=== PATIENT | female | born 1945 | race Caucasian/White ===

== ENCOUNTER 2019-05-13 18:02 | Inpatient (IN) | payer MEDICARE, MEDICAID ==
[~2019-05-13] VITALS: Ht 149.9 cm; Wt 63.6 kg
[~2019-05-13 18:02] MED LIST: TRAM50TA94 PO
[2019-05-14 00:03] LABS: BASOPHILS % 1.1 % (0.0-2.0); EOSINOPHILS % 2.8 % (0.0-5.0); HEMATOCRIT. 40.2 % (36.0-48.0); HEMOGLOBIN. 13.7 g/dL (12.0-16.0); LYMPHOCYTES % 27.5 % (20.0-50.0); MEAN CORPUSCULAR HEMOGLOBIN 31.3 pg (28.0-32.0); MEAN PLATELET VOLUME 9.5 fl (7.4-10.4); MONOCYTES % 13.6 % (2.0-8.0); PLATELET 62 x1000/uL (130-400); RED BLOOD CELL COUNT 4.37 mill/uL (4.2-5.4)
[2019-05-14 00:04] LABS: CHLORIDE 110 mEq/L (98-107)
[2019-05-14] MEDS ORDERED: ASPIRIN 325MG TABLET PO ONE (00:30)
[2019-05-14] MEDS ORDERED: INSULIN LISPRO 100 UNITS/ML SUBCUT NR (03:03)
[2019-05-14 04:58] VITALS: BP 122/55
[2019-05-14 05:00] VITALS: BP 122/55
[2019-05-14] MEDS ORDERED: ONDANSETRON HCL 4MG/2ML INJ IV PRN (06:30)
[2019-05-14] MEDS ORDERED: HYDROCODONE/ACETAMINOPHEN 5/325MG TABLET PO PRN (06:30)
[2019-05-14] MEDS ORDERED: NON FORMULARY PATIENT HOME MED PO SCH (06:30)
[2019-05-14] MEDS ORDERED: CLONIDINE 0.1MG TABLET PO PRN (06:30)
[2019-05-14] MEDS ORDERED: IOHEXOL-350 100 ML BOTTLE ONE (06:58)
[2019-05-14] MEDS ORDERED: GUAIFENESIN/CODEINE 200-20MG/10ML UDC PO PRN (07:00)
[2019-05-14 08:00] VITALS: BP 160/60
[2019-05-14] MEDS ORDERED: DEXTROSE 50% WATER 50ML SYRINGE IV PRN (08:45)
[2019-05-14] MEDS ORDERED: POTASSIUM CHLORIDE 20MEQ TABLET SR PO NR (08:45)
[2019-05-14 10:10] LABS: BG BASE EXCESS 2.8 mmol/L (-2.0-2.0); BG CARBOXYHEMOGLOBIN 0.7 % (0.5-1.5); BG DEOXYHEMOGLOBIN 8.3 % (0.0-5.0); BG FRACTION INSPIRED OXYGEN 21; BG HCO3 ACT 26.3 mmol/L (22.0-26.0); BG METHEMOGLOBIN 0.2 % (0.0-1.5); BG OXYGEN SATURATION 91.6 % (92.0-98.5); BG OXYHEMOGLOBIN 90.8 % (94.0-97.0); BG PCO2 36.6 mmHg (35.0-45.0); BG PH 7.474 (7.350-7.450); BG PO2 58.7 mmHg (75.0-100.0); BG SAMPLE SITE RIGHT RADIAL; BG TOTAL HEMOGLOBIN 13.7 g/dL (12.0-18.0); BG VENT MODE ROOM AIR
[2019-05-14 11:48] LABS: BASOPHILS % 1.2 % (0.0-2.0); EOSINOPHILS % 3.8 % (0.0-5.0); HEMATOCRIT. 38.5 % (36.0-48.0); HEMOGLOBIN. 13.2 g/dL (12.0-16.0); LYMPHOCYTES % 31.8 % (20.0-50.0); MEAN CORPUSCULAR HEMOGLOBIN 31.5 pg (28.0-32.0); MEAN PLATELET VOLUME 10.2 fl (7.4-10.4); MONOCYTES % 12.5 % (2.0-8.0); NEUTROPHILS % 50.7 % (40.0-76.0); PLATELET 66 x1000/uL (130-400); RED BLOOD CELL COUNT 4.18 mill/uL (4.2-5.4); RED CELL DISTRIBUTION WIDTH 14.2 % (11.6-14.6)
[2019-05-14 11:51] LABS: INR 1.2; PROTHROMBIN TIME 12.7 sec (9.6-11.0)
[2019-05-14 12:06] VITALS: BP 160/60
[2019-05-14 12:06] LABS: CHLORIDE 110 mEq/L (98-107)
[2019-05-14] MEDS: BLOOD SUGAR DIAGNOSTIC STRIP TEST SCH ×3 (12:06→20:49)
[2019-05-14] MEDS: INSULIN LISPRO 100 UNITS/ML SUBCUT SCH ×3 (12:12→20:51)
[2019-05-14 12:16] LABS: LDL CHOLESTEROL 50 mg/dL (5-100)
[2019-05-14 12:18] LABS: CREATINE KINASE 88 IU/L (26-192); CREATINE KINASE MB FRACTION 1.2 ng/mL (0.5-3.6); HDL CHOLESTEROL 48 mg/dL (40-59)
[2019-05-14] MEDS ORDERED: ASPI-986 PO (12:35)
[2019-05-14] MEDS ORDERED: BENTL PO (12:35)
[2019-05-14] MEDS ORDERED: NORT50CA PO (12:35)
[2019-05-14] MEDS ORDERED: ESCI20TA43 PO (12:35)
[2019-05-14] MEDS ORDERED: TOPUD PO (12:35)
[2019-05-14] MEDS ORDERED: PRAV10TA35 PO (12:35)
[2019-05-14] MEDS ORDERED: BISACODYL 10MG SUPP PR PRN (13:30)
[2019-05-14] MEDS ORDERED: IPRATROPIUM/ALBUTEROL 0.5-3(2.5)MG/3ML NEB HHN PRN (13:30)
[2019-05-14] MEDS ORDERED: LORAZEPAM 2MG/ML CPJ IV PRN (13:30)
[2019-05-14] MEDS ORDERED: DIPHENHYDRAMINE 50MG/ML VIAL IV PRN (13:30)
[2019-05-14 13:37] LABS: BASOPHILS % 1.2 % (0.0-2.0); EOSINOPHILS % 3.2 % (0.0-5.0); HEMATOCRIT. 38.8 % (36.0-48.0); HEMOGLOBIN. 13.3 g/dL (12.0-16.0); LYMPHOCYTES % 31.7 % (20.0-50.0); MEAN CORPUSCULAR HEMOGLOBIN 31.4 pg (28.0-32.0); MEAN CORPUSCULAR VOLUME 91.8 fL (81.0-99.0); MEAN PLATELET VOLUME 10.2 fl (7.4-10.4); MONOCYTES % 13.4 % (2.0-8.0); NEUTROPHILS % 50.5 % (40.0-76.0); PLATELET 69 x1000/uL (130-400); RED BLOOD CELL COUNT 4.22 mill/uL (4.2-5.4)
[2019-05-14 14:01] LABS: CHLORIDE 111 mEq/L (98-107)
[2019-05-14 14:11] LABS: T4 FREE 1.07 ng/dL (0.76-1.46)
[2019-05-14] MEDS ORDERED: LEVOFLOXACIN 500MG PREMIX 100 ML IV NR (14:30)
[2019-05-14] MEDS: AMLODIPINE 5MG TABLET PO SCH (14:31)
[2019-05-14] MEDS: SODIUM CHLORIDE 0.45% 1,000 ML IV SCH (14:31)
[2019-05-14 15:14] LABS: VITAMIN B12 SERUM 1222 pg/mL (211-911)
[2019-05-14 16:00] VITALS: BP 104/50
[2019-05-14 16:02] LABS: CLARITY URINE CLOUDY (CLEAR); COLOR URINE DARK YELLOW (YELLOW); KETONES URINE TRACE (NEGATIVE); LEUKOCYTE ESTERASE URINE 1+ (NEGATIVE); NITRITE URINE POSITIVE (NEGATIVE); OCCULT BLOOD URINE NEGATIVE (NEGATIVE); PH URINE 6.5 (4.5-8.0); PROTEIN URINE TRACE (NEGATIVE); SPECIFIC GRAVITY URINE 1.052 (1.005-1.030)
[2019-05-14 16:21] LABS: *AMPHETAMINES SCREEN URINE NEGATIVE (NEGATIVE); *BARBITURATES SCREEN URINE NEGATIVE (NEGATIVE); *BENZODIAZEPINES SCREEN URINE NEGATIVE (NEGATIVE); *COCAINE SCREEN URINE NEGATIVE (NEGATIVE); METHADONE URINE SCREEN NEGATIVE (NEGATIVE)
[2019-05-14 16:22] LABS: CANNABINOID URINE SCREEN NEGATIVE (NEGATIVE); OPIATES URINE SCREEN PRESUMTIVE POSITIVE (NEGATIVE); PHENCYCLIDINE URINE SCREEN NEGATIVE (NEGATIVE)
[2019-05-14 20:00] VITALS: BP 113/50
[2019-05-14] MEDS ORDERED: FAMOTIDINE 20MG TABLET PO SCH (21:00)
[2019-05-14] MEDS: IPRATROPIUM/ALBUTEROL 0.5-3(2.5)MG/3ML NEB HHN SCH (21:40)
[2019-05-15] VITALS: BP 102/50
[2019-05-15] MEDS: IPRATROPIUM/ALBUTEROL 0.5-3(2.5)MG/3ML NEB HHN SCH ×3 (01:34→14:18)
[2019-05-15 04:00] VITALS: BP 106/52
[2019-05-15] MEDS: BLOOD SUGAR DIAGNOSTIC STRIP TEST SCH ×3 (05:39→18:15)
[2019-05-15 08:00] VITALS: BP 100/48
[2019-05-15 08:19] LABS: HEPATITIS B SURFACE ANTIGEN NEGATIVE
[2019-05-15 08:49] LABS: HEPATITIS A AB IGM NEGATIVE (NEGATIVE)
[2019-05-15] MEDS: AMLODIPINE 5MG TABLET PO SCH (09:00)
[2019-05-15] MEDS: INSULIN LISPRO 100 UNITS/ML SUBCUT SCH ×3 (09:19→18:18)
[2019-05-15] MEDS: SODIUM CHLORIDE 0.45% 1,000 ML IV SCH (09:22)
[2019-05-15 12:49] VITALS: BP 94/42
[2019-05-15] MEDS ORDERED: LEVOFLOXACIN 250MG PREMIX 50 ML IV SCH (14:30)
[2019-05-15 16:00] VITALS: BP 106/52
[2019-05-15] MEDS ORDERED: ALBU90AE INH (16:19)
[2019-05-15] MEDS ORDERED: FAMO-135 PO (16:19)
[2019-05-15] MEDS ORDERED: LEVO500T2 PO (16:19)
[2019-05-15 18:38] VITALS: BP 106/52
== END 2019-05-15 19:45 | disposition home or self-care (01) | DRG 202 ==
LOC: ER 18:02 → 6WST 05-14 02:12 → EDBEDREQ 05-14 02:23 → EDBEDREQTM 05-14 02:23 → ENRESERV 05-14 04:30
PROVIDERS: ADMIT Internal Medicine; ATTEND Internal Medicine
DX: J20.9 Acute bronchitis, unspecified (principal); R04.2 Hemoptysis; R07.81 Pleurodynia; D72.819 Decreased white blood cell count, unspecified; E11.65 Type 2 diabetes mellitus with hyperglycemia; E78.5 Hyperlipidemia, unspecified; E86.0 Dehydration; I10 Essential (primary) hypertension; K29.70 Gastritis, unspecified, without bleeding; K52.9 Noninfective gastroenteritis and colitis, unspecified; K74.60 Unspecified cirrhosis of liver; R74.8 Abnormal levels of other serum enzymes; K80.20 Calculus of gallbladder without cholecystitis without obstruction; Z86.73 Personal history of transient ischemic attack (TIA), and cerebral infarction without residual deficits
CPT/HCPCS: 36415; 36600; 71045; 71275; 74176; 80048; 80053; 80061; 80305; 81003; 82375; 82550; 82553; 82607; 82805; 82962; 83036; 83880; 84439; 84443; 84484; 85025; 86705; 86709; 86803; 87070; 87340; 87804; 93005; 93306; 94640; 96372; 97162; 99285; J1815; J1956; J2405; J7620; Q9967

== ENCOUNTER 2019-10-25 13:40 | Emergency (ER) | payer MEDICARE, MEDICAID ==
[~2019-10-25] VITALS: Ht 152.4 cm; Wt 59.0 kg
[~2019-10-25 13:40] MED LIST changes: +ALBU90AE INH; +BENTL PO; +ESCI20TA43 PO; +FAMO-135 PO; +LEVO500T2 PO; +NORT50CA PO; +PRAV10TA35 PO; +TOPUD PO
[2019-10-25] MEDS ORDERED: LIDOCAINE HCL 1% 20ML VIAL (Pyxis) INJ INFIL ONE (15:15)
[2019-10-25 17:15] VITALS: BP 122/61
== END 2019-10-25 17:38 | disposition home or self-care (01) ==
LOC: ER 13:40
DX: L03.011 Cellulitis of right finger (principal); E11.9 Type 2 diabetes mellitus without complications; E78.00 Pure hypercholesterolemia, unspecified; I10 Essential (primary) hypertension; Z98.890 Other specified postprocedural states; Z90.49 Acquired absence of other specified parts of digestive tract; Z79.899 Other long term (current) drug therapy; Z88.0 Allergy status to penicillin
CPT/HCPCS: 73030; 99283; J3490

== ENCOUNTER 2019-10-28 17:01 | Emergency (ER) | payer MEDICARE, MEDICAID ==
[~2019-10-28] VITALS: Ht 152.4 cm; Wt 65.0 kg
[2019-10-28 17:06] VITALS: BP 152/68
== END 2019-10-28 19:21 | disposition home or self-care (01) ==
LOC: ER 17:01
DX: Z48.00 Encounter for change or removal of nonsurgical wound dressing (principal)
CPT/HCPCS: 99282

== ENCOUNTER 2019-11-12 14:32 | Emergency (ER) | payer MEDICARE, MEDICAID ==
[~2019-11-12] VITALS: Ht 152.4 cm; Wt 61.0 kg
[2019-11-12 14:45] VITALS: BP 126/53
== END 2019-11-12 15:47 | disposition home or self-care (01) ==
LOC: ER 14:32
DX: L03.011 Cellulitis of right finger (principal); I11.9 Hypertensive heart disease without heart failure; E78.00 Pure hypercholesterolemia, unspecified; E11.9 Type 2 diabetes mellitus without complications
CPT/HCPCS: 99283

== ENCOUNTER 2020-06-09 12:39 | Emergency (ER) | payer MEDICARE, MEDICAID ==
[~2020-06-09] VITALS: Ht 152.4 cm; Wt 59.0 kg
[~2020-06-09 12:39] MED LIST changes: -ESCI20TA43 PO; +ESCI20TA47 PO
[2020-06-09] MEDS ORDERED: TRAMADOL 50MG TABLET PO ONE (14:00)
[2020-06-09 14:02] LABS: BASOPHILS % 1.5 % (0.0-2.0); EOSINOPHILS % 2.5 % (0.0-5.0); HEMATOCRIT. 33.5 % (36.0-48.0); HEMOGLOBIN. 11.1 g/dL (12.0-16.0); LYMPHOCYTES % 19.8 % (20.0-50.0); MEAN CORPUSCULAR HEMOGLOBIN 29.4 pg (28.0-32.0); MEAN PLATELET VOLUME 8.8 fl (7.4-10.4); MONOCYTES % 10.6 % (2.0-8.0); NEUTROPHILS % 65.6 % (40.0-76.0); PLATELET 100 x1000/uL (130-400); RED BLOOD CELL COUNT 3.77 mill/uL (4.2-5.4); RED CELL DISTRIBUTION WIDTH 15.8 % (11.6-14.6)
[2020-06-09 14:08] LABS: CHLORIDE 106 mEq/L (98-107)
[2020-06-09 14:10] LABS: INR 1.3; PROTHROMBIN TIME 13.3 sec (9.6-11.0)
[2020-06-09] MEDS ORDERED: MAGNESIUM/ALUMINUM HYDROXIDE/SIMETHICONE 30ML UDC PO PRN (18:00)
[2020-06-09] MEDS ORDERED: IPRATROPIUM/ALBUTEROL 0.5-3(2.5)MG/3ML NEB NEB PRN (18:00)
[2020-06-09] MEDS ORDERED: LEVOFLOXACIN 500MG PREMIX 100 ML IV SCH ×2 (18:00→20:00)
[2020-06-09] MEDS ORDERED: GUAIFENESIN 200MG/10ML SUGAR FREE UDC PO PRN (18:00)
[2020-06-09] MEDS ORDERED: DEXTROSE 50% WATER 50ML SYRINGE IV PRN (18:00)
[2020-06-09] MEDS ORDERED: ACETAMINOPHEN 650MG/20.3ML UDC GT PRN (18:00)
[2020-06-09] MEDS ORDERED: CLONIDINE 0.1MG TABLET PO PRN (18:00)
[2020-06-09] MEDS ORDERED: NA PHOS,M-B/NA PHOS,DI-BA ENEMA 118ML PR PRN (18:00)
[2020-06-09] MEDS ORDERED: DIPHENHYDRAMINE 50MG/ML VIAL IV PRN (18:00)
[2020-06-09] MEDS ORDERED: ACETAMINOPHEN 650MG SUPP PR PRN (18:00)
[2020-06-09] MEDS ORDERED: ONDANSETRON HCL 4MG/2ML INJ IV PRN (18:00)
[2020-06-09] MEDS ORDERED: DOCUSATE SODIUM 100MG CAPSULE PO PRN (18:00)
[2020-06-09] MEDS ORDERED: INSULIN LISPRO 100 UNITS/ML SUBCUT SCH (18:20)
[2020-06-09] MEDS ORDERED: POTASSIUM CHLORIDE INJ 40 MEQ in DEXT 5% WATER 250 ML IV SCH (19:00)
[2020-06-09 19:30] VITALS: BP 117/61
[2020-06-09] MEDS ORDERED: BLOOD SUGAR DIAGNOSTIC STRIP TEST SCH (21:00)
[2020-06-09] MEDS ORDERED: FAMOTIDINE 20MG TABLET PO SCH (21:00)
[2020-06-09] MEDS ORDERED: LACTULOSE 20G/30ML UDC PO SCH (22:00)
[2020-06-10] MEDS ORDERED: SPIR25TA6 MT (15:39)
[2020-06-10] MEDS ORDERED: FURO-152 MT (15:39)
[2020-06-10] MEDS ORDERED: LEVOFLOXACIN 250MG PREMIX 50 ML IV SCH (20:00)
== END 2020-06-09 19:40 | disposition left against medical advice (07) ==
LOC: ER 12:39 → EDBEDREQ 15:46 → EDBEDREQTM 15:46 → CANRESERV 19:35 → ENRESERV 19:35 → ER 19:40 → CANBEDREQ 20:22
DX: R07.89 Other chest pain (principal); R18.8 Other ascites; R26.9 Unspecified abnormalities of gait and mobility; R10.12 Left upper quadrant pain; D61.818 Other pancytopenia; E11.9 Type 2 diabetes mellitus without complications; E78.00 Pure hypercholesterolemia, unspecified; K74.60 Unspecified cirrhosis of liver; I11.9 Hypertensive heart disease without heart failure; E72.20 Disorder of urea cycle metabolism, unspecified; Z91.81 History of falling; Z90.49 Acquired absence of other specified parts of digestive tract; Z88.0 Allergy status to penicillin
CPT/HCPCS: 36415; 71045; 71250; 74176; 80053; 82140; 83880; 84484; 85025; 86850; 86900; 93005; 99285; J3480; J7060

== ENCOUNTER 2020-06-10 08:52 | Emergency (ER) | payer MEDICARE, MEDICAID ==
[~2020-06-10] VITALS: Ht 152.4 cm; Wt 69.0 kg
[~2020-06-10 08:52] MED LIST changes: +ESCI20TA37 PO; -ESCI20TA47 PO
[2020-06-10 09:49] LABS: BASOPHILS % 1.3 % (0.0-2.0); HEMATOCRIT. 38.1 % (36.0-48.0); HEMOGLOBIN. 12.6 g/dL (12.0-16.0); LYMPHOCYTES % 16.9 % (20.0-50.0); MEAN CORPUSCULAR HEMOGLOBIN 29.3 pg (28.0-32.0); MEAN CORPUSCULAR VOLUME 88.8 fL (81.0-99.0); MEAN PLATELET VOLUME 8.6 fl (7.4-10.4); MONOCYTES % 7.2 % (2.0-8.0); NEUTROPHILS % 71.6 % (40.0-76.0); PLATELET 126 x1000/uL (130-400); RED BLOOD CELL COUNT 4.29 mill/uL (4.2-5.4); RED CELL DISTRIBUTION WIDTH 15.8 % (11.6-14.6)
[2020-06-10 09:55] LABS: CHLORIDE 106 mEq/L (98-107)
[2020-06-10 10:00] LABS: INR 1.2; PROTHROMBIN TIME 12.4 sec (9.6-11.0)
[2020-06-10] MEDS ORDERED: DEXTROSE 50% WATER 50ML SYRINGE IV PRN (10:15)
[2020-06-10] MEDS ORDERED: BLOOD SUGAR DIAGNOSTIC STRIP TEST SCH (13:00)
[2020-06-10] MEDS ORDERED: LIDOCAINE HCL 1% 20ML VIAL (Pyxis) INJ ONE (13:07)
[2020-06-10] MEDS ORDERED: SODIUM BICARBONATE 4% (2.4MEQ) 5ML VIAL IV ONE (13:07)
[2020-06-10] MEDS ORDERED: INSULIN LISPRO 100 UNITS/ML SUBCUT SCH (13:20)
[2020-06-10] MEDS ORDERED: FUROSEMIDE 40MG TABLET PO NR (14:15)
[2020-06-10] MEDS ORDERED: SPIRONOLACTONE 25MG TABLET PO SCH (14:15)
[2020-06-10] MEDS ORDERED: POTASSIUM CHLORIDE 20MEQ TABLET SR PO NR (14:15)
[2020-06-10] MEDS ORDERED: FURO-152 MT (15:39)
[2020-06-10] MEDS ORDERED: SPIR25TA6 MT (15:39)
[2020-06-10 16:20] VITALS: BP 115/54
== END 2020-06-10 16:48 | disposition home or self-care (01) ==
LOC: ER 08:52 → EDBEDREQ 10:53 → EDBEDREQSVC 10:53 → ER 16:48 → CANBEDREQ 06-11 07:00
DX: R18.8 Other ascites (principal); E87.2 Acidosis; K80.80 Other cholelithiasis without obstruction; E11.9 Type 2 diabetes mellitus without complications; E78.00 Pure hypercholesterolemia, unspecified; I10 Essential (primary) hypertension; Z90.49 Acquired absence of other specified parts of digestive tract; Z79.899 Other long term (current) drug therapy; Z88.0 Allergy status to penicillin; Z20.822 Contact with and (suspected) exposure to COVID-19
CPT/HCPCS: 36415; 49083; 71045; 74176; 76705; 80053; 82040; 82945; 82962; 83605; 83615; 83690; 84145; 84157; 84478; 84484; 85025; 85610; 87040; 87070; 87205; 87426; 88108; 88312; 89050; 93005; 96372; 99285; J1815; J3490

== ENCOUNTER 2020-10-10 20:32 | Inpatient (IN) | payer MEDICARE, MEDICAID ==
[~2020-10-10] VITALS: Ht 154.9 cm; Wt 69.9 kg
[~2020-10-10 20:32] MED LIST changes: +FURO-152 MT; -LEVO500T2 PO; -PRAV10TA35 PO; +SPIR25TA6 MT; -TOPUD PO
[2020-10-10] MEDS ORDERED: MORPHINE SULFATE 4 MG/ML CPJ (NOT FOR IM USE) IV STA (22:52)
[2020-10-10] MEDS ORDERED: ONDANSETRON HCL 4MG/2ML INJ IV STA (22:52)
[2020-10-10] MEDS ORDERED: SODIUM CHLORIDE 0.9% 1,000 ML IV ONE (23:00)
[2020-10-10 23:36] LABS: HEMATOCRIT. 23.5 % (36.0-48.0); MEAN CORPUSCULAR HEMOGLOBIN 23.5 pg (28.0-32.0); MEAN CORPUSCULAR VOLUME 78.8 fL (81.0-99.0); MEAN PLATELET VOLUME 8.4 fl (7.4-10.4); PLATELET 127 x1000/uL (130-400); RED BLOOD CELL COUNT 2.98 mill/uL (4.2-5.4); RED CELL DISTRIBUTION WIDTH 17.8 % (11.6-14.6)
[2020-10-10 23:44] LABS: CHLORIDE 112 mEq/L (98-107)
[2020-10-10 23:45] LABS: INR 1.3; PROTHROMBIN TIME 13.7 sec (9.6-11.0)
[2020-10-10 23:58] LABS: CLARITY URINE CLEAR (CLEAR); COLOR URINE YELLOW (YELLOW); KETONES URINE NEGATIVE (NEGATIVE); LEUKOCYTE ESTERASE URINE TRACE (NEGATIVE); NITRITE URINE NEGATIVE (NEGATIVE); OCCULT BLOOD URINE NEGATIVE (NEGATIVE); PH URINE 6.5 (4.5-8.0); PROTEIN URINE NEGATIVE (NEGATIVE)
[2020-10-11] MEDS ORDERED: OCTREOTIDE ACETATE 50 MCG/ML 1ML IV STA (01:13)
[2020-10-11] MEDS ORDERED: PANTOPRAZOLE SODIUM 40 MG/VIAL IV STA (01:13)
[2020-10-11] MEDS ORDERED: IOHEXOL-300 100 ML BOTTLE ONE (03:48)
[2020-10-11 04:58] LABS: PLATELET ESTIMATE DECREASED
[2020-10-11] MEDS ORDERED: MORPHINE SULFATE 2 MG/ML CPJ (NOT FOR IM USE) IV SCH (06:00)
[2020-10-11 08:00] VITALS: BP 108/51
[2020-10-11 10:32] VITALS: BP_SYST 110; BP_SYST 117; BP_DIAS 57; BP_DIAS 65
[2020-10-11] MEDS ORDERED: CLONIDINE 0.1MG TABLET PO PRN (11:45)
[2020-10-11] MEDS ORDERED: DIPHENHYDRAMINE 50MG/ML VIAL IV PRN (11:45)
[2020-10-11] MEDS ORDERED: DOCUSATE SODIUM 100MG CAPSULE PO PRN (11:45)
[2020-10-11] MEDS: PANTOPRAZOLE SODIUM 40 MG/VIAL IV SCH ×2 (11:45→17:43)
[2020-10-11] MEDS ORDERED: GUAIFENESIN 200MG/10ML SUGAR FREE UDC PO PRN (11:45)
[2020-10-11] MEDS ORDERED: MAGNESIUM/ALUMINUM HYDROXIDE/SIMETHICONE 30ML UDC PO PRN (11:45)
[2020-10-11] MEDS ORDERED: ONDANSETRON HCL 4MG/2ML INJ IV PRN (11:45)
[2020-10-11] MEDS ORDERED: IPRATROPIUM/ALBUTEROL 0.5-3(2.5)MG/3ML NEB NEB PRN (11:45)
[2020-10-11] MEDS ORDERED: ACETAMINOPHEN 325MG TABLET PO PRN (11:45)
[2020-10-11] MEDS ORDERED: LORAZEPAM 0.5MG TABLET PO PRN (11:45)
[2020-10-11] MEDS ORDERED: NA PHOS,M-B/NA PHOS,DI-BA ENEMA 118ML PR PRN (11:45)
[2020-10-11] MEDS ORDERED: ACETAMINOPHEN 650MG SUPP PR PRN (11:45)
[2020-10-11] MEDS ORDERED: HYDROCODONE/ACETAMINOPHEN 5/325MG TABLET PO PRN (11:45)
[2020-10-11] MEDS ORDERED: MORPHINE SULFATE 2 MG/ML CPJ (NOT FOR IM USE) IV PRN (11:45)
[2020-10-11 12:00] VITALS: BP 117/66
[2020-10-11] MEDS ORDERED: LACTULOSE 20G/30ML UDC PO NR (13:45)
[2020-10-11] MEDS ORDERED: DEXTROSE 50% WATER 50ML SYRINGE IV PRN (15:45)
[2020-10-11 15:51] LABS: BASOPHILS % 1.6 % (0.0-2.0); EOSINOPHILS % 3.7 % (0.0-5.0); HEMATOCRIT. 26.2 % (36.0-48.0); HEMOGLOBIN. 8.4 g/dL (12.0-16.0); LYMPHOCYTES % 17.4 % (20.0-50.0); MEAN CORPUSCULAR VOLUME 77.8 fL (81.0-99.0); MEAN PLATELET VOLUME 8.1 fl (7.4-10.4); MONOCYTES % 10.7 % (2.0-8.0); NEUTROPHILS % 66.6 % (40.0-76.0); PLATELET 128 x1000/uL (130-400); RED BLOOD CELL COUNT 3.36 mill/uL (4.2-5.4); RED CELL DISTRIBUTION WIDTH 18.1 % (11.6-14.6)
[2020-10-11 16:00] VITALS: BP 106/60
[2020-10-11 16:01] LABS: CHLORIDE 111 mEq/L (98-107)
[2020-10-11 16:15] LABS: TOTAL IRON BINDING CAPACITY 295 ug/dL (250-450)
[2020-10-11 16:22] LABS: FERRITIN 24 ng/mL (10-291)
[2020-10-11 16:33] LABS: HEPATITIS B SURFACE ANTIGEN NEGATIVE
[2020-10-11 16:39] LABS: VITAMIN B12 SERUM >2000 pg/mL pg/mL (211-911)
[2020-10-11 17:02] LABS: HEPATITIS A AB IGM NEGATIVE (NEGATIVE)
[2020-10-11] MEDS: BLOOD SUGAR DIAGNOSTIC STRIP TEST SCH ×2 (17:39→21:00)
[2020-10-11] MEDS: INSULIN LISPRO 100 UNITS/ML SUBCUT SCH ×2 (17:44→21:00)
[2020-10-11 20:00] VITALS: BP 123/66
[2020-10-12] VITALS (7 sets, daily range): BP systolic 100–120; BP diastolic 47–80
[2020-10-12 06:33] LABS: CHLORIDE 112 mEq/L (98-107)
[2020-10-12 06:42] LABS: LDL CHOLESTEROL 42 mg/dL (5-100)
[2020-10-12 06:43] LABS: HEMATOCRIT. 25.2 % (36.0-48.0); HEMOGLOBIN. 8.1 g/dL (12.0-16.0); MEAN CORPUSCULAR HEMOGLOBIN 25.2 pg (28.0-32.0); MEAN CORPUSCULAR VOLUME 78.5 fL (81.0-99.0); MEAN PLATELET VOLUME 8.3 fl (7.4-10.4); PLATELET 123 x1000/uL (130-400); RED BLOOD CELL COUNT 3.21 mill/uL (4.2-5.4); RED CELL DISTRIBUTION WIDTH 18.4 % (11.6-14.6)
[2020-10-12 06:45] LABS: T4 FREE 1.08 ng/dL (0.76-1.46)
[2020-10-12 06:48] LABS: HDL CHOLESTEROL 42 mg/dL (40-59)
[2020-10-12] MEDS: BLOOD SUGAR DIAGNOSTIC STRIP TEST SCH ×2 (07:23→12:10)
[2020-10-12] MEDS: INSULIN LISPRO 100 UNITS/ML SUBCUT SCH ×3 (07:40→18:25)
[2020-10-12] MEDS ORDERED: LIDOCAINE HCL 1% 20ML VIAL (Pyxis) INJ ONE (08:40)
[2020-10-12] MEDS ORDERED: SODIUM BICARBONATE 4% (2.4MEQ) 5ML VIAL IV ONE (08:41)
[2020-10-12] MEDS ORDERED: SIMETHICONE/SOD BICARB/CIT AC 1 EACH GRAN.EF.PK ONE (08:41)
[2020-10-12] MEDS: LACTULOSE 20G/30ML UDC PO SCH ×2 (10:20→18:31)
[2020-10-12] MEDS: PANTOPRAZOLE SODIUM 40 MG/VIAL IV SCH ×2 (10:22→18:30)
[2020-10-12] MEDS ORDERED: PROT40 MT (16:04)
[2020-10-12 16:05] LABS: HEMATOCRIT 26.8 % (36.0-48.0); HEMOGLOBIN 8.4 g/dL (12.0-16.0)
[2020-10-12 16:47] LABS: PLATELET ESTIMATE DECREASED
== END 2020-10-12 21:50 | disposition home or self-care (01) | DRG 432 ==
LOC: ER 20:32 → 8WST 10-11 02:32 → ENRESERV 10-11 07:57
PROVIDERS: ADMIT Internal Medicine; ATTEND Internal Medicine
PROC: 30233N1 Transfusion of Nonautologous Red Blood Cells into Peripheral Vein, Percutaneous Approach (ICD-10-PCS; 2020-10-11)
PROC: 0W9G3ZZ Drainage of Peritoneal Cavity, Percutaneous Approach (ICD-10-PCS; principal; 2020-10-12)
DX: K74.69 Other cirrhosis of liver (principal); I50.33 Acute on chronic diastolic (congestive) heart failure; R18.8 Other ascites; K76.6 Portal hypertension; M48.56XA Collapsed vertebra, not elsewhere classified, lumbar region, initial encounter for fracture; D64.9 Anemia, unspecified; E11.9 Type 2 diabetes mellitus without complications; E78.5 Hyperlipidemia, unspecified; I11.0 Hypertensive heart disease with heart failure; K80.20 Calculus of gallbladder without cholecystitis without obstruction; M85.80 Other specified disorders of bone density and structure, unspecified site; Z79.899 Other long term (current) drug therapy; Z82.49 Family history of ischemic heart disease and other diseases of the circulatory system; Z88.0 Allergy status to penicillin; Z20.822 Contact with and (suspected) exposure to COVID-19
CPT/HCPCS: 36415; 49083; 71045; 74177; 80053; 80061; 81003; 82040; 82140; 82270; 82607; 82728; 82746; 82962; 83036; 83540; 83550; 83605; 83615; 83880; 84439; 84443; 84478; 85014; 85018; 85025; 85044; 86705; 86709; 86803; 86850; 86900; 86920; 87340; 87426; 88108; 88312; 93005; 93306; 93970; 97162; 99291; C9113; J1815; J2270; J2354; J2405; J3490; J7030; J7517; P9016; Q9967

== ENCOUNTER 2020-10-24 18:06 | Inpatient (IN) | payer MEDICARE, MEDICAID ==
[~2020-10-24] VITALS: Ht 152.4 cm; Wt 59.4 kg
[~2020-10-24 18:06] MED LIST changes: +PROT40 MT
[2020-10-24 19:17] LABS: HEMOGLOBIN. 9.4 g/dL (12.0-16.0); MEAN CORPUSCULAR HEMOGLOBIN 25.2 pg (28.0-32.0); MEAN CORPUSCULAR VOLUME 80.3 fL (81.0-99.0); MEAN PLATELET VOLUME 7.8 fl (7.4-10.4); PLATELET 164 x1000/uL (130-400); RED BLOOD CELL COUNT 3.73 mill/uL (4.2-5.4); RED CELL DISTRIBUTION WIDTH 25.2 % (11.6-14.6)
[2020-10-24 19:25] LABS: CHLORIDE 114 mEq/L (98-107)
[2020-10-24 19:27] LABS: INR 1.2; PROTHROMBIN TIME 13.1 sec (9.6-11.0)
[2020-10-24 19:39] LABS: PLATELET ESTIMATE NORMAL
[2020-10-24] MEDS ORDERED: FUROSEMIDE 40MG/4ML VIAL IVP ONE (19:45)
[2020-10-24 20:28] LABS: CLARITY URINE CLEAR (CLEAR); COLOR URINE DARK YELLOW (YELLOW); KETONES URINE TRACE (NEGATIVE); LEUKOCYTE ESTERASE URINE TRACE (NEGATIVE); NITRITE URINE NEGATIVE (NEGATIVE); OCCULT BLOOD URINE NEGATIVE (NEGATIVE); PH URINE 5.5 (4.5-8.0); PROTEIN URINE TRACE (NEGATIVE)
[2020-10-25 09:10] VITALS: BP 105/53
[2020-10-25] MEDS ORDERED: *PATIENT'S OWN MEDICATION STORAGE XX SCH (10:45)
[2020-10-25] MEDS: SPIRONOLACTONE 25MG TABLET PO SCH (11:15)
[2020-10-25] MEDS ORDERED: LORAZEPAM 0.5MG TABLET PO PRN (11:15)
[2020-10-25] MEDS ORDERED: NA PHOS,M-B/NA PHOS,DI-BA ENEMA 118ML PR PRN (11:15)
[2020-10-25] MEDS ORDERED: IPRATROPIUM/ALBUTEROL 0.5-3(2.5)MG/3ML NEB NEB PRN ×2 (11:15)
[2020-10-25] MEDS ORDERED: ACETAMINOPHEN 650MG SUPP PR PRN (11:15)
[2020-10-25] MEDS ORDERED: ONDANSETRON HCL 4MG/2ML INJ IV PRN (11:15)
[2020-10-25] MEDS ORDERED: ACETAMINOPHEN 325MG TABLET PO PRN (11:15)
[2020-10-25] MEDS ORDERED: DIPHENHYDRAMINE 50MG/ML VIAL IV PRN (11:15)
[2020-10-25] MEDS ORDERED: CLONIDINE 0.1MG TABLET PO PRN (11:15)
[2020-10-25] MEDS ORDERED: DOCUSATE SODIUM 100MG CAPSULE PO PRN (11:15)
[2020-10-25] MEDS ORDERED: GUAIFENESIN 200MG/10ML SUGAR FREE UDC PO PRN (11:15)
[2020-10-25] MEDS ORDERED: DEXTROSE 50% WATER 50ML SYRINGE IV PRN (11:15)
[2020-10-25] MEDS ORDERED: MAGNESIUM/ALUMINUM HYDROXIDE/SIMETHICONE 30ML UDC PO PRN (11:15)
[2020-10-25] MEDS ORDERED: HYDROCODONE/ACETAMINOPHEN 5/325MG TABLET PO PRN (11:15)
[2020-10-25 11:20] VITALS: BP 105/53
[2020-10-25 11:44] LABS: BG BASE EXCESS -0.8 mmol/L (-2.0-2.0); BG CARBOXYHEMOGLOBIN 0.5 % (0.5-1.5); BG DEOXYHEMOGLOBIN 4.5 % (0.0-5.0); BG FRACTION INSPIRED OXYGEN 21; BG HCO3 ACT 21.7 mmol/L (22.0-26.0); BG METHEMOGLOBIN 0.3 % (0.0-1.5); BG OXYGEN SATURATION 95.5 % (92.0-98.5); BG OXYHEMOGLOBIN 94.7 % (94.0-97.0); BG PCO2 28.5 mmHg (35.0-45.0); BG PO2 77.6 mmHg (75.0-100.0); BG SAMPLE SITE RIGHT RADIAL; BG TOTAL HEMOGLOBIN 9.4 g/dL (12.0-18.0); BG VENT MODE ROOM AIR
[2020-10-25 12:00] VITALS: BP 113/57
[2020-10-25] MEDS ORDERED: LEVOFLOXACIN 500MG PREMIX 100 ML IV NR ×2 (12:00→15:00)
[2020-10-25] MEDS: INSULIN LISPRO 100 UNITS/ML SUBCUT SCH ×3 (12:23→21:00)
[2020-10-25] MEDS: PANTOPRAZOLE SODIUM 40 MG/VIAL IV SCH (12:23)
[2020-10-25] MEDS: BLOOD SUGAR DIAGNOSTIC STRIP TEST SCH ×3 (12:23→21:00)
[2020-10-25] MEDS: FUROSEMIDE 40MG/4ML VIAL IV SCH (12:23)
[2020-10-25] MEDS ORDERED: METRONIDAZOLE 500 MG PREMIX 100 ML IV SCH (13:00)
[2020-10-25] MEDS ORDERED: LIDOCAINE HCL 1% 20ML VIAL (Pyxis) INJ ONE (13:35)
[2020-10-25] MEDS ORDERED: SODIUM BICARBONATE 4% (2.4MEQ) 5ML VIAL IV ONE (13:35)
[2020-10-25] MEDS ORDERED: PRAV10TA35 PO (13:43)
[2020-10-25] MEDS ORDERED: FERR325T6 PO (13:43)
[2020-10-25] MEDS ORDERED: RAMI2.5C54 PO (13:43)
[2020-10-25] MEDS ORDERED: GLIM2TAB30 PO (13:43)
[2020-10-25] MEDS: METRONIDAZOLE 500 MG PREMIX 100 ML IV SCH ×2 (15:27→21:01)
[2020-10-25 16:00] VITALS: BP 102/55
[2020-10-25 18:17] LABS: BASOPHILS % 0.5 % (0.0-2.0); EOSINOPHILS % 6.8 % (0.0-5.0); HEMATOCRIT. 26.6 % (36.0-48.0); HEMOGLOBIN. 8.7 g/dL (12.0-16.0); LYMPHOCYTES % 18.2 % (20.0-50.0); MEAN CORPUSCULAR HEMOGLOBIN 25.6 pg (28.0-32.0); MEAN CORPUSCULAR VOLUME 78.5 fL (81.0-99.0); MEAN PLATELET VOLUME 7.6 fl (7.4-10.4); MONOCYTES % 14.1 % (2.0-8.0); NEUTROPHILS % 60.4 % (40.0-76.0); PLATELET 133 x1000/uL (130-400); RED BLOOD CELL COUNT 3.39 mill/uL (4.2-5.4); RED CELL DISTRIBUTION WIDTH 25.1 % (11.6-14.6)
[2020-10-25 18:40] LABS: CREATINE KINASE 56 IU/L (26-192)
[2020-10-25 18:41] LABS: CREATINE KINASE MB FRACTION < 1.0 ng/mL (0.5-3.6)
[2020-10-25 19:09] LABS: CHLORIDE 112 mEq/L (98-107)
[2020-10-25 20:00] VITALS: BP 106/52
[2020-10-26] VITALS: BP 112/55
[2020-10-26 00:07] LABS: CREATINE KINASE 50 IU/L (26-192); CREATINE KINASE MB FRACTION < 1.0 ng/mL (0.5-3.6)
[2020-10-26 04:00] VITALS: BP 95/40
[2020-10-26] MEDS: METRONIDAZOLE 500 MG PREMIX 100 ML IV SCH ×2 (06:15→12:59)
[2020-10-26 06:17] LABS: CHLORIDE 112 mEq/L (98-107)
[2020-10-26 06:25] LABS: BASOPHILS % 1.6 % (0.0-2.0); EOSINOPHILS % 7.1 % (0.0-5.0); HEMATOCRIT. 25.4 % (36.0-48.0); HEMOGLOBIN. 8.3 g/dL (12.0-16.0); LYMPHOCYTES % 18.8 % (20.0-50.0); MEAN CORPUSCULAR VOLUME 79.5 fL (81.0-99.0); MEAN PLATELET VOLUME 7.8 fl (7.4-10.4); MONOCYTES % 11.9 % (2.0-8.0); NEUTROPHILS % 60.6 % (40.0-76.0); PLATELET 127 x1000/uL (130-400); RED BLOOD CELL COUNT 3.19 mill/uL (4.2-5.4); RED CELL DISTRIBUTION WIDTH 25.6 % (11.6-14.6)
[2020-10-26 06:26] LABS: LDL CHOLESTEROL 43 mg/dL (5-100)
[2020-10-26 06:28] LABS: HDL CHOLESTEROL 39 mg/dL (40-59)
[2020-10-26 06:29] LABS: T4 FREE 0.98 ng/dL (0.76-1.46)
[2020-10-26] MEDS: BLOOD SUGAR DIAGNOSTIC STRIP TEST SCH ×3 (06:50→17:30)
[2020-10-26] MEDS: INSULIN LISPRO 100 UNITS/ML SUBCUT SCH ×3 (07:05→17:30)
[2020-10-26 08:38] VITALS: BP 98/54
[2020-10-26] MEDS: FUROSEMIDE 40MG/4ML VIAL IV SCH (08:39)
[2020-10-26] MEDS: PANTOPRAZOLE SODIUM 40 MG/VIAL IV SCH (08:42)
[2020-10-26] MEDS: SPIRONOLACTONE 25MG TABLET PO SCH (08:45)
[2020-10-26] MEDS ORDERED: LEVOFLOXACIN 250MG PREMIX 50 ML IV SCH ×2 (09:00→11:00)
[2020-10-26 12:00] VITALS: BP 101/53
[2020-10-26] MEDS ORDERED: PROT40 MT (15:16)
[2020-10-26] MEDS ORDERED: FURO-151 MT (15:16)
[2020-10-26] MEDS ORDERED: SPIR25TA6 MT (15:16)
[2020-10-26 16:00] VITALS: BP 113/64
[2020-10-26 18:03] VITALS: BP 113/64
== END 2020-10-26 20:00 | disposition home or self-care (01) | DRG 432 ==
LOC: ER 18:06 → 8WST 23:51 → EDBEDREQTM 23:57 → EDBEDREQ 23:57 → ENRESERV 10-25 08:09
PROVIDERS: ADMIT Internal Medicine; ATTEND Internal Medicine
PROC: 0W9G3ZZ Drainage of Peritoneal Cavity, Percutaneous Approach (ICD-10-PCS; principal; 2020-10-25)
DX: K74.60 Unspecified cirrhosis of liver (principal); I50.33 Acute on chronic diastolic (congestive) heart failure; K76.6 Portal hypertension; M48.56XA Collapsed vertebra, not elsewhere classified, lumbar region, initial encounter for fracture; R18.8 Other ascites; I11.0 Hypertensive heart disease with heart failure; R26.2 Difficulty in walking, not elsewhere classified; Z20.822 Contact with and (suspected) exposure to COVID-19; E78.5 Hyperlipidemia, unspecified; D64.9 Anemia, unspecified; E11.9 Type 2 diabetes mellitus without complications; M85.80 Other specified disorders of bone density and structure, unspecified site; Z79.84 Long term (current) use of oral hypoglycemic drugs; Z79.899 Other long term (current) drug therapy; Z88.0 Allergy status to penicillin
CPT/HCPCS: 36415; 36600; 49083; 71045; 80053; 80061; 81003; 82105; 82375; 82378; 82550; 82553; 82805; 82962; 83036; 83880; 84439; 84443; 84484; 85025; 86850; 86900; 87426; 88108; 88312; 93005; 93970; 97162; 99285; C9113; J1815; J1940; J1956; J3490; J7040

== ENCOUNTER 2021-04-04 08:36 | Inpatient (IN) | payer MEDICARE, MEDICAID ==
[~2021-04-04] VITALS: Ht 142.2 cm; Wt 56.7 kg
[~2021-04-04 08:36] MED LIST changes: +FERR325T6 PO; +FURO-151 MT; +GLIM2TAB30 PO; +PRAV10TA35 PO; +RAMI2.5C54 PO
[2021-04-04] MEDS ORDERED: IOHEXOL-350 100 ML BOTTLE ONE ×2 (09:21→14:04)
[2021-04-04 09:40] LABS: BASOPHILS % 0.9 % (0.0-2.0); EOSINOPHILS % 2.3 % (0.0-5.0); HEMATOCRIT. 40.4 % (36.0-48.0); HEMOGLOBIN. 13.1 g/dL (12.0-16.0); LYMPHOCYTES % 16.4 % (20.0-50.0); MEAN CORPUSCULAR HEMOGLOBIN 31.7 pg (28.0-32.0); MEAN CORPUSCULAR VOLUME 97.7 fL (81.0-99.0); MEAN PLATELET VOLUME 9.1 fl (7.4-10.4); MONOCYTES % 10.9 % (2.0-8.0); NEUTROPHILS % 69.5 % (40.0-76.0); PLATELET 83 x1000/uL (130-400); RED BLOOD CELL COUNT 4.13 mill/uL (4.2-5.4); RED CELL DISTRIBUTION WIDTH 14.6 % (11.6-14.6)
[2021-04-04 09:44] LABS: CHLORIDE 112 mEq/L (98-107)
[2021-04-04] MEDS ORDERED: ASPIRIN 300MG SUPP PR ONE (09:45)
[2021-04-04 09:48] LABS: ETHANOL BLOOD < 10 mg/dL
[2021-04-04 09:54] LABS: CLARITY URINE CLEAR (CLEAR); COLOR URINE DARK YELLOW (YELLOW); KETONES URINE NEGATIVE (NEGATIVE); LEUKOCYTE ESTERASE URINE NEGATIVE (NEGATIVE); NITRITE URINE NEGATIVE (NEGATIVE); OCCULT BLOOD URINE NEGATIVE (NEGATIVE); PH URINE 7.5 (4.5-8.0); PROTEIN URINE NEGATIVE (NEGATIVE); SPECIFIC GRAVITY URINE 1.017 (1.005-1.030)
[2021-04-04 10:07] LABS: *AMPHETAMINES SCREEN URINE NEGATIVE (NEGATIVE); *BARBITURATES SCREEN URINE NEGATIVE (NEGATIVE); *BENZODIAZEPINES SCREEN URINE NEGATIVE (NEGATIVE); *COCAINE SCREEN URINE NEGATIVE (NEGATIVE); METHADONE URINE SCREEN NEGATIVE (NEGATIVE); OPIATES URINE SCREEN NEGATIVE (NEGATIVE)
[2021-04-04 10:08] LABS: CANNABINOID URINE SCREEN NEGATIVE (NEGATIVE); PHENCYCLIDINE URINE SCREEN NEGATIVE (NEGATIVE)
[2021-04-04] MEDS ORDERED: HYDROCODONE/ACETAMINOPHEN 5/325MG TABLET PO PRN (12:00)
[2021-04-04] MEDS ORDERED: LORAZEPAM 0.5MG TABLET PO PRN (12:00)
[2021-04-04] MEDS ORDERED: ACETAMINOPHEN 650MG/20.3ML UDC GT PRN (12:00)
[2021-04-04] MEDS ORDERED: IPRATROPIUM/ALBUTEROL 0.5-3(2.5)MG/3ML NEB NEB PRN (12:00)
[2021-04-04] MEDS ORDERED: NA PHOS,M-B/NA PHOS,DI-BA ENEMA 118ML PR PRN (12:00)
[2021-04-04] MEDS ORDERED: DEXTROSE 50% WATER 50ML SYRINGE IV PRN (12:00)
[2021-04-04] MEDS ORDERED: ACETAMINOPHEN 650MG SUPP PR PRN (12:00)
[2021-04-04] MEDS ORDERED: DIPHENHYDRAMINE 50MG/ML VIAL IV PRN (12:00)
[2021-04-04] MEDS ORDERED: ONDANSETRON HCL 4MG/2ML INJ IV PRN (12:00)
[2021-04-04] MEDS ORDERED: DOCUSATE SODIUM 100MG CAPSULE PO PRN (12:00)
[2021-04-04] MEDS ORDERED: CLONIDINE 0.1MG TABLET PO PRN (12:00)
[2021-04-04] MEDS ORDERED: GUAIFENESIN 200MG/10ML SUGAR FREE UDC PO PRN (12:00)
[2021-04-04] MEDS ORDERED: MAGNESIUM/ALUMINUM HYDROXIDE/SIMETHICONE 30ML UDC PO PRN (12:00)
[2021-04-04] MEDS ORDERED: CEFTRIAXONE 1 G PREMIX 50 ML IV NR (12:00)
[2021-04-04 12:19] LABS: BG BASE EXCESS -5.3 mmol/L (-2.0-2.0); BG CARBOXYHEMOGLOBIN 0.8 % (0.5-1.5); BG DEOXYHEMOGLOBIN 5.6 % (0.0-5.0); BG HCO3 ACT 17.2 mmol/L (22.0-26.0); BG METHEMOGLOBIN 0.1 % (0.0-1.5); BG OXYGEN SATURATION 94.3 % (92.0-98.5); BG OXYHEMOGLOBIN 93.5 % (94.0-97.0); BG PH 7.438 (7.350-7.450); BG PO2 76.8 mmHg (75.0-100.0); BG SAMPLE SITE RIGHT RADIAL; BG TOTAL HEMOGLOBIN 13.6 g/dL (12.0-18.0); BG VENT MODE ROOM AIR
[2021-04-04] MEDS: BLOOD SUGAR DIAGNOSTIC STRIP TEST SCH ×3 (12:51→22:08)
[2021-04-04] MEDS: INSULIN LISPRO 100 UNITS/ML SUBCUT SCH ×3 (12:58→22:08)
[2021-04-04] MEDS ORDERED: NALOXONE HCL 0.4MG/ML VIAL IV PRN (15:00)
[2021-04-04 20:15] LABS: CREATINE KINASE 195 IU/L (26-192); CREATINE KINASE MB FRACTION 2.3 ng/mL (0.5-3.6)
[2021-04-04] MEDS: DEXT 5%/0.45% NACL 1000ML 1,000 ML IV SCH (20:19)
[2021-04-04 23:39] LABS: CREATINE KINASE MB FRACTION 2.5 ng/mL (0.5-3.6)
[2021-04-05] VITALS: BP 149/64
[2021-04-05 04:00] VITALS: BP 137/59
[2021-04-05] MEDS: BLOOD SUGAR DIAGNOSTIC STRIP TEST SCH ×2 (06:37→12:52)
[2021-04-05] MEDS: DEXT 5%/0.45% NACL 1000ML 1,000 ML IV SCH (06:38)
[2021-04-05 07:46] LABS: HEMATOCRIT. 39.1 % (36.0-48.0); MEAN CORPUSCULAR HEMOGLOBIN 31.7 pg (28.0-32.0); MEAN CORPUSCULAR VOLUME 95.7 fL (81.0-99.0); MEAN PLATELET VOLUME 9.1 fl (7.4-10.4); PLATELET 88 x1000/uL (130-400); RED BLOOD CELL COUNT 4.08 mill/uL (4.2-5.4); RED CELL DISTRIBUTION WIDTH 14.3 % (11.6-14.6)
[2021-04-05 07:50] LABS: CHLORIDE 112 mEq/L (98-107)
[2021-04-05] MEDS: INSULIN LISPRO 100 UNITS/ML SUBCUT SCH ×2 (07:50→12:50)
[2021-04-05 08:00] VITALS: BP 109/39
[2021-04-05] MEDS ORDERED: ASPIRIN 81MG EC TABLET PO SCH (09:00)
[2021-04-05] MEDS ORDERED: CEFTRIAXONE 1,000 MG in DEXTROSE 5% WATER 50 ML IV SCH (09:00)
[2021-04-05 11:31] LABS: PLATELET ESTIMATE DECREASED
[2021-04-05 12:00] VITALS: BP 120/47
[2021-04-05] MEDS ORDERED: LACTULOSE 300 ML in WATER FOR IRRIGATION,STERILE 700 ML IR NR (13:00)
[2021-04-05] MEDS ORDERED: LEVO500T89 PO (13:30)
[2021-04-05] MEDS ORDERED: LACT10SO30 MT (13:32)
[2021-04-05] MEDS ORDERED: LACTULOSE 20G/30ML UDC PO NR (14:00)
[2021-04-05 14:57] VITALS: BP 120/47
== END 2021-04-05 16:21 | disposition home or self-care (01) | DRG 71 ==
LOC: ER 08:36 → EDBEDREQSVC 10:16 → EDBEDREQ 10:16 → EDBEDREQTM 10:16 → EDBEDREQ 11:25 → ENRESERV 19:07 → 6WST 23:59
PROVIDERS: ADMIT Internal Medicine; ATTEND Internal Medicine
DX: G93.41 Metabolic encephalopathy (principal); G45.9 Transient cerebral ischemic attack, unspecified; E72.20 Disorder of urea cycle metabolism, unspecified; K81.0 Acute cholecystitis; E44.1 Mild protein-calorie malnutrition; K74.60 Unspecified cirrhosis of liver; D72.825 Bandemia; E11.65 Type 2 diabetes mellitus with hyperglycemia; E78.5 Hyperlipidemia, unspecified; E86.0 Dehydration; I10 Essential (primary) hypertension; Z20.822 Contact with and (suspected) exposure to COVID-19; Z79.84 Long term (current) use of oral hypoglycemic drugs; Z79.899 Other long term (current) drug therapy; Z82.49 Family history of ischemic heart disease and other diseases of the circulatory system; Z86.73 Personal history of transient ischemic attack (TIA), and cerebral infarction without residual deficits; Z88.0 Allergy status to penicillin; Z68.28 Body mass index [BMI] 28.0-28.9, adult
CPT/HCPCS: 36415; 36600; 70496; 70498; 70551; 71045; 76700; 78227; 80053; 80076; 80305; 80320; 81003; 82140; 82248; 82375; 82550; 82553; 82805; 82962; 83036; 84443; 84484; 85025; 87426; 93005; 93306; 97161; 99291; A9537; J0696; J1815; J7060; Q9967; G0480

== ENCOUNTER 2021-09-02 23:59 | Inpatient (IN) | payer MEDICARE, MEDICAID ==
[~2021-09-02] VITALS: Ht 152.4 cm; Wt 68.5 kg
[~2021-09-02 23:59] MED LIST changes: -FAMO-135 PO; -FURO-152 MT; +LACT10SO30 MT; +LEVO500T89 PO; -NORT50CA PO; -PRAV10TA35 PO
[2021-09-03] MEDS ORDERED: ONDANSETRON HCL 4MG/2ML INJ IV STA (01:11)
[2021-09-03] MEDS ORDERED: KETOROLAC 30MG/ML VIAL IV STA (01:11)
[2021-09-03] MEDS ORDERED: SODIUM CHLORIDE 0.9% 1,000 ML IV ONE (01:15)
[2021-09-03 01:54] LABS: CHLORIDE 102 mEq/L (98-107)
[2021-09-03] MEDS ORDERED: ONDANSETRON HCL 4MG/2ML INJ IV NR (02:30)
[2021-09-03] MEDS ORDERED: KETOROLAC 30MG/ML VIAL IV NR (02:30)
[2021-09-03 02:43] LABS: BASOPHILS % 1.1 % (0.0-2.0); EOSINOPHILS % 3.1 % (0.0-5.0); HEMATOCRIT. 32.2 % (36.0-48.0); HEMOGLOBIN. 10.4 g/dL (12.0-16.0); LYMPHOCYTES % 15.2 % (20.0-50.0); MEAN CORPUSCULAR HEMOGLOBIN 30.3 pg (28.0-32.0); MEAN CORPUSCULAR VOLUME 93.5 fL (81.0-99.0); MEAN PLATELET VOLUME 9.6 fl (7.4-10.4); MONOCYTES % 14.9 % (2.0-8.0); NEUTROPHILS % 65.7 % (40.0-76.0); PLATELET 64 x1000/uL (130-400); RED BLOOD CELL COUNT 3.44 mill/uL (4.2-5.4); RED CELL DISTRIBUTION WIDTH 17.2 % (11.6-14.6)
[2021-09-03] MEDS ORDERED: DEXTROSE 50% WATER 50ML SYRINGE IV PRN (10:45)
[2021-09-03 11:20] VITALS: BP 110/49
[2021-09-03 12:00] VITALS: BP 110/49
[2021-09-03] MEDS: BLOOD SUGAR DIAGNOSTIC STRIP TEST SCH ×3 (12:20→21:20)
[2021-09-03] MEDS ORDERED: DIPHENHYDRAMINE 50MG/ML VIAL IV PRN (12:45)
[2021-09-03] MEDS ORDERED: NA PHOS,M-B/NA PHOS,DI-BA ENEMA 118ML PR PRN (12:45)
[2021-09-03] MEDS ORDERED: HYDROCODONE/ACETAMINOPHEN 5/325MG TABLET PO PRN (12:45)
[2021-09-03] MEDS ORDERED: CLONIDINE 0.1MG TABLET PO PRN (12:45)
[2021-09-03] MEDS ORDERED: MAGNESIUM/ALUMINUM HYDROXIDE/SIMETHICONE 30ML UDC PO PRN (12:45)
[2021-09-03] MEDS ORDERED: IPRATROPIUM/ALBUTEROL 0.5-3(2.5)MG/3ML NEB NEB PRN (12:45)
[2021-09-03] MEDS ORDERED: DOCUSATE SODIUM 100MG CAPSULE PO PRN (12:45)
[2021-09-03] MEDS ORDERED: ACETAMINOPHEN 650MG SUPP PR PRN (12:45)
[2021-09-03] MEDS ORDERED: MORPHINE SULFATE 2 MG/ML CPJ (NOT FOR IM USE) IV PRN (12:45)
[2021-09-03] MEDS ORDERED: ACETAMINOPHEN 325MG TABLET PO PRN (12:45)
[2021-09-03] MEDS ORDERED: GUAIFENESIN 200MG/10ML SUGAR FREE UDC PO PRN (12:45)
[2021-09-03] MEDS ORDERED: ONDANSETRON HCL 4MG/2ML INJ IV PRN (12:45)
[2021-09-03] MEDS ORDERED: LORAZEPAM 0.5MG TABLET PO PRN (12:45)
[2021-09-03] MEDS: INSULIN LISPRO 100 UNITS/ML SUBCUT SCH ×3 (14:22→21:22)
[2021-09-03 16:00] VITALS: BP 106/50
[2021-09-03 16:43] LABS: CREATINE KINASE 80 IU/L (26-192); CREATINE KINASE MB FRACTION 1.2 ng/mL (0.5-3.6)
[2021-09-03 16:57] LABS: INR 1.3; PROTHROMBIN TIME 14.1 sec (9.6-11.0)
[2021-09-03 20:00] VITALS: BP 108/55
[2021-09-03] MEDS: FAMOTIDINE 20MG TABLET PO SCH (21:19)
[2021-09-04] VITALS: BP 96/58
[2021-09-04 01:33] LABS: CREATINE KINASE MB FRACTION 1.4 ng/mL (0.5-3.6)
[2021-09-04 06:57] LABS: BASOPHILS % 1.3 % (0.0-2.0); EOSINOPHILS % 4.4 % (0.0-5.0); HEMATOCRIT. 30.5 % (36.0-48.0); HEMOGLOBIN. 10.2 g/dL (12.0-16.0); LYMPHOCYTES % 22.1 % (20.0-50.0); MEAN CORPUSCULAR HEMOGLOBIN 30.8 pg (28.0-32.0); MEAN PLATELET VOLUME 8.4 fl (7.4-10.4); MONOCYTES % 13.6 % (2.0-8.0); NEUTROPHILS % 58.6 % (40.0-76.0); PLATELET 73 x1000/uL (130-400); RED BLOOD CELL COUNT 3.32 mill/uL (4.2-5.4); RED CELL DISTRIBUTION WIDTH 16.8 % (11.6-14.6)
[2021-09-04] MEDS: BLOOD SUGAR DIAGNOSTIC STRIP TEST SCH ×4 (07:20→21:21)
[2021-09-04 08:00] VITALS: BP 118/52
[2021-09-04 08:13] LABS: CHLORIDE 110 mEq/L (98-107)
[2021-09-04 08:34] LABS: HDL CHOLESTEROL 36 mg/dL (40-59); LDL CHOLESTEROL 57 mg/dL (5-100)
[2021-09-04] MEDS: INSULIN LISPRO 100 UNITS/ML SUBCUT SCH ×4 (09:24→21:24)
[2021-09-04 12:00] VITALS: BP 108/57
[2021-09-04 16:00] VITALS: BP 109/47
[2021-09-04 19:01] LABS: CLARITY URINE CLEAR (CLEAR); COLOR URINE DARK YELLOW (YELLOW); KETONES URINE 1+ (NEGATIVE); LEUKOCYTE ESTERASE URINE TRACE (NEGATIVE); NITRITE URINE NEGATIVE (NEGATIVE); OCCULT BLOOD URINE NEGATIVE (NEGATIVE); PH URINE 5.5 (4.5-8.0); PROTEIN URINE NEGATIVE (NEGATIVE); SPECIFIC GRAVITY URINE 1.035 (1.005-1.030)
[2021-09-04 20:00] VITALS: BP 109/48
[2021-09-04] MEDS ORDERED: NALOXONE HCL 0.4MG/ML VIAL IV PRN (20:45)
[2021-09-04] MEDS: FAMOTIDINE 20MG TABLET PO SCH (21:19)
[2021-09-05] VITALS: BP 105/45
[2021-09-05 04:00] VITALS: BP 113/54
[2021-09-05] MEDS: BLOOD SUGAR DIAGNOSTIC STRIP TEST SCH ×4 (07:20→21:38)
[2021-09-05 08:00] VITALS: BP 113/54
[2021-09-05] MEDS: INSULIN LISPRO 100 UNITS/ML SUBCUT SCH ×4 (09:04→22:01)
[2021-09-05 12:00] VITALS: BP 123/55
[2021-09-05 16:12] VITALS: BP 114/52
[2021-09-05 20:00] VITALS: BP 113/41
[2021-09-05] MEDS ORDERED: LEVOFLOXACIN 750MG PREMIX 150 ML IV SCH (21:00)
[2021-09-05] MEDS: FAMOTIDINE 20MG TABLET PO SCH (21:37)
[2021-09-06] VITALS: BP 101/50
[2021-09-06 04:00] VITALS: BP 128/52
[2021-09-06] MEDS: BLOOD SUGAR DIAGNOSTIC STRIP TEST SCH ×2 (07:45→12:14)
[2021-09-06] MEDS: INSULIN LISPRO 100 UNITS/ML SUBCUT SCH ×2 (08:22→13:00)
[2021-09-06] MEDS ORDERED: LEVO500T89 PO (12:52)
[2021-09-06 13:32] LABS: BASOPHILS % 2.2 % (0.0-2.0); EOSINOPHILS % 4.1 % (0.0-5.0); HEMATOCRIT. 30.9 % (36.0-48.0); LYMPHOCYTES % 21.2 % (20.0-50.0); MEAN CORPUSCULAR HEMOGLOBIN 30.3 pg (28.0-32.0); MEAN CORPUSCULAR VOLUME 93.8 fL (81.0-99.0); MEAN PLATELET VOLUME 8.5 fl (7.4-10.4); MONOCYTES % 14.7 % (2.0-8.0); NEUTROPHILS % 57.8 % (40.0-76.0); PLATELET 85 x1000/uL (130-400); RED BLOOD CELL COUNT 3.29 mill/uL (4.2-5.4); RED CELL DISTRIBUTION WIDTH 17.2 % (11.6-14.6)
[2021-09-06 13:48] LABS: CHLORIDE 105 mEq/L (98-107)
[2021-09-06 16:14] VITALS: BP 129/57
[2021-09-07] MEDS ORDERED: LEVOFLOXACIN 750MG PREMIX 150 ML IV SCH (21:00)
== END 2021-09-06 16:25 | disposition home health service (06) | DRG 74 ==
LOC: ER 23:59 → 6EST 09-03 04:10 → ENRESERV 09-03 10:13
PROVIDERS: ADMIT Internal Medicine; ATTEND Internal Medicine
DX: G90.9 Disorder of the autonomic nervous system, unspecified (principal); M48.56XA Collapsed vertebra, not elsewhere classified, lumbar region, initial encounter for fracture; E87.1 Hypo-osmolality and hyponatremia; D61.818 Other pancytopenia; N39.0 Urinary tract infection, site not specified; E44.1 Mild protein-calorie malnutrition; M54.9 Dorsalgia, unspecified; K74.60 Unspecified cirrhosis of liver; I12.9 Hypertensive chronic kidney disease with stage 1 through stage 4 chronic kidney disease, or unspecified chronic kidney disease; M47.816 Spondylosis without myelopathy or radiculopathy, lumbar region; R26.89 Other abnormalities of gait and mobility; E78.5 Hyperlipidemia, unspecified; M19.90 Unspecified osteoarthritis, unspecified site; E11.22 Type 2 diabetes mellitus with diabetic chronic kidney disease; E11.65 Type 2 diabetes mellitus with hyperglycemia; N18.9 Chronic kidney disease, unspecified; M48.061 Spinal stenosis, lumbar region without neurogenic claudication; W18.39XA Other fall on same level, initial encounter; Y93.89 Activity, other specified; Y92.89 Other specified places as the place of occurrence of the external cause; Y99.8 Other external cause status; Z79.84 Long term (current) use of oral hypoglycemic drugs; Z79.899 Other long term (current) drug therapy; Z86.73 Personal history of transient ischemic attack (TIA), and cerebral infarction without residual deficits; Z91.014 Allergy to mammalian meats; Z79.2 Long term (current) use of antibiotics; Z68.29 Body mass index [BMI] 29.0-29.9, adult
CPT/HCPCS: 36415; 71045; 72128; 72131; 72170; 74176; 80053; 80061; 81003; 82550; 82553; 82962; 84443; 84484; 85025; 93970; 94640; 97162; 99285; J1815; J1885; J1956; J2270; J2405; J7030

== ENCOUNTER 2021-11-24 21:52 | Inpatient (IN) | payer MEDICARE, MEDICAID ==
[~2021-11-24] VITALS: Ht 137.2 cm; Wt 59.4 kg
[~2021-11-24 21:52] MED LIST changes: -LEVO500T89 PO; +LEVO500T90 PO
[2021-11-24] MEDS ORDERED: SODIUM CHLORIDE 0.9% 1,000 ML IV ONE (23:00)
[2021-11-24] MEDS ORDERED: MORPHINE SULFATE 4 MG/ML CPJ (NOT FOR IM USE) IV ONE (23:00)
[2021-11-24 23:24] LABS: BASOPHILS % 2.7 % (0.0-2.0); EOSINOPHILS % 8.4 % (0.0-5.0); HEMATOCRIT. 22.9 % (36.0-48.0); HEMOGLOBIN. 7.1 g/dL (12.0-16.0); LYMPHOCYTES % 25.7 % (20.0-50.0); MEAN CORPUSCULAR HEMOGLOBIN 26.8 pg (28.0-32.0); MEAN CORPUSCULAR VOLUME 86.5 fL (81.0-99.0); MEAN PLATELET VOLUME 8.1 fl (7.4-10.4); NEUTROPHILS % 49.2 % (40.0-76.0); PLATELET 83 x1000/uL (130-400); RED BLOOD CELL COUNT 2.65 mill/uL (4.2-5.4)
[2021-11-24 23:29] LABS: CHLORIDE 108 mEq/L (98-107)
[2021-11-25] MEDS ORDERED: PIPERACILLIN/TAZOBACTAM 3.375GM/50ML PREMIX IV ONE (01:15)
[2021-11-25] MEDS ORDERED: SODIUM CHLORIDE 0.9% 1,000 ML IV ONE (01:15)
[2021-11-25] MEDS ORDERED: PIPERACILLIN/TAZ 3.375G PREMIX 50 ML IV NR (02:15)
[2021-11-25 08:29] LABS: CLARITY URINE CLEAR (CLEAR); COLOR URINE YELLOW (YELLOW); KETONES URINE NEGATIVE (NEGATIVE); LEUKOCYTE ESTERASE URINE TRACE (NEGATIVE); NITRITE URINE NEGATIVE (NEGATIVE); OCCULT BLOOD URINE NEGATIVE (NEGATIVE); PROTEIN URINE NEGATIVE (NEGATIVE); SPECIFIC GRAVITY URINE 1.017 (1.005-1.030)
[2021-11-25 10:00] VITALS: BP_SYST 149; BP_DIAS 49; BP_DIAS 69
[2021-11-25] MEDS ORDERED: POTASSIUM CHLORIDE 20MEQ TABLET SR PO ONE (11:45)
[2021-11-25 12:00] VITALS: BP 119/49
[2021-11-25] MEDS ORDERED: IPRATROPIUM/ALBUTEROL 0.5-3(2.5)MG/3ML NEB HHN PRN (12:15)
[2021-11-25] MEDS ORDERED: ACETAMINOPHEN 325MG TABLET PO PRN (12:15)
[2021-11-25] MEDS ORDERED: DOCUSATE SODIUM 100MG CAPSULE PO PRN (12:15)
[2021-11-25] MEDS ORDERED: HYDROCODONE/ACETAMINOPHEN 5/325MG TABLET PO PRN (12:15)
[2021-11-25] MEDS ORDERED: ONDANSETRON HCL 4MG/2ML INJ IV PRN (12:15)
[2021-11-25] MEDS ORDERED: LORAZEPAM 0.5MG TABLET PO PRN (12:15)
[2021-11-25] MEDS ORDERED: CLONIDINE 0.1MG TABLET PO PRN (12:15)
[2021-11-25 13:11] LABS: HEMATOCRIT 23.7 % (36.0-48.0); HEMOGLOBIN 7.4 g/dL (12.0-16.0); MEAN CORPUSCULAR VOLUME 86.2 fL (81.0-99.0); RED BLOOD CELL COUNT 2.75 mill/uL (4.2-5.4); RED CELL DISTRIBUTION WIDTH 18.5 % (11.6-14.6)
[2021-11-25 13:22] LABS: INR 1.4; PROTHROMBIN TIME 14.9 sec (9.6-11.0)
[2021-11-25 13:35] LABS: PHOSPHORUS 2.9 mg/dL (2.5-4.9)
[2021-11-25] MEDS: PANTOPRAZOLE 40MG DR TABLET PO SCH (14:02)
[2021-11-25] MEDS: LACTULOSE 20G/30ML UDC PO SCH ×2 (14:02→23:18)
[2021-11-25] MEDS ORDERED: NALOXONE HCL 0.4MG/ML VIAL IV PRN (14:15)
[2021-11-25] MEDS ORDERED: POTASSIUM CHLORIDE 20MEQ TABLET SR PO NR (14:15)
[2021-11-25 16:00] VITALS: BP 116/59
[2021-11-25] MEDS ORDERED: DEXTROSE 50% WATER 50ML SYRINGE IV PRN (16:45)
[2021-11-25] MEDS: BLOOD SUGAR DIAGNOSTIC STRIP TEST SCH ×2 (17:10→21:00)
[2021-11-25 19:13] LABS: TOTAL IRON BINDING CAPACITY 317 ug/dL (250-450)
[2021-11-25 19:53] LABS: FERRITIN 8 ng/mL (10-291)
[2021-11-25 20:00] VITALS: BP 111/41
[2021-11-25 20:05] LABS: VITAMIN B12 SERUM >2000 pg/mL pg/mL (211-911)
[2021-11-25] MEDS: INSULIN LISPRO 100 UNITS/ML SUBCUT SCH ×2 (21:00→23:28)
[2021-11-26] VITALS (10 sets, daily range): BP systolic 96–140; BP diastolic 53–62
[2021-11-26 06:14] LABS: BASOPHILS % 2.8 % (0.0-2.0); EOSINOPHILS % 12.1 % (0.0-5.0); HEMATOCRIT. 22.1 % (36.0-48.0); LYMPHOCYTES % 22.9 % (20.0-50.0); MEAN PLATELET VOLUME 8.5 fl (7.4-10.4); MONOCYTES % 11.8 % (2.0-8.0); NEUTROPHILS % 50.4 % (40.0-76.0); PLATELET 95 x1000/uL (130-400); RED CELL DISTRIBUTION WIDTH 18.6 % (11.6-14.6)
[2021-11-26] MEDS: LACTULOSE 20G/30ML UDC PO SCH ×3 (06:19→22:49)
[2021-11-26 06:30] LABS: CHLORIDE 114 mEq/L (98-107)
[2021-11-26] MEDS: INSULIN LISPRO 100 UNITS/ML SUBCUT SCH ×4 (07:40→21:00)
[2021-11-26] MEDS: BLOOD SUGAR DIAGNOSTIC STRIP TEST SCH ×4 (08:08→21:00)
[2021-11-26] MEDS: PANTOPRAZOLE 40MG DR TABLET PO SCH (08:47)
[2021-11-26] MEDS: IRON SUCROSE COMPLEX 100 MG/5 ML ML IV SCH (08:47)
[2021-11-26] MEDS ORDERED: LIDOCAINE HCL 1% 10 MG/ML 10ML VIAL ONE (10:51)
[2021-11-26] MEDS ORDERED: SODIUM BICARBONATE 4% (2.4MEQ) 5ML VIAL IV ONE (10:52)
[2021-11-26 16:07] LABS: HEMATOCRIT. 22.5 % (36.0-48.0); HEMOGLOBIN. 7.1 g/dL (12.0-16.0); MEAN CORPUSCULAR HEMOGLOBIN 26.9 pg (28.0-32.0); MEAN CORPUSCULAR VOLUME 85.5 fL (81.0-99.0); MEAN PLATELET VOLUME 8.7 fl (7.4-10.4); PLATELET 90 x1000/uL (130-400); RED BLOOD CELL COUNT 2.63 mill/uL (4.2-5.4); RED CELL DISTRIBUTION WIDTH 18.8 % (11.6-14.6)
[2021-11-26 17:28] LABS: PLATELET ESTIMATE DECREASED
[2021-11-26 18:40] LABS: HEPATITIS B SURFACE ANTIGEN NEGATIVE
[2021-11-26] MEDS ORDERED: LEVOFLOXACIN 750MG PREMIX 150 ML IV SCH (23:00)
[2021-11-27] VITALS (7 sets, daily range): BP systolic 98–122; BP diastolic 53–80
[2021-11-27] MEDS: BLOOD SUGAR DIAGNOSTIC STRIP TEST SCH ×4 (05:51→21:00)
[2021-11-27] MEDS: LACTULOSE 20G/30ML UDC PO SCH ×3 (05:52→21:00)
[2021-11-27] MEDS: INSULIN LISPRO 100 UNITS/ML SUBCUT SCH ×4 (06:02→21:16)
[2021-11-27 06:03] LABS: HEMATOCRIT. 29.2 % (36.0-48.0); HEMOGLOBIN. 9.5 g/dL (12.0-16.0); MEAN CORPUSCULAR HEMOGLOBIN 27.1 pg (28.0-32.0); MEAN PLATELET VOLUME 9.4 fl (7.4-10.4); PLATELET 91 x1000/uL (130-400); RED BLOOD CELL COUNT 3.52 mill/uL (4.2-5.4); RED CELL DISTRIBUTION WIDTH 18.6 % (11.6-14.6)
[2021-11-27] MEDS: ACETAMINOPHEN 325MG TABLET PO PRN (06:09)
[2021-11-27 07:00] LABS: CHLORIDE 110 mEq/L (98-107)
[2021-11-27] MEDS: IRON SUCROSE COMPLEX 100 MG/5 ML ML IV SCH (08:47)
[2021-11-27] MEDS: PANTOPRAZOLE 40MG DR TABLET PO SCH (08:47)
[2021-11-27 12:23] LABS: PLATELET ESTIMATE DECREASED
[2021-11-27] MEDS ORDERED: MEROPENEM 1,000 MG in SODIUM CHLORIDE 0.9% 100 ML IV SCH (14:00)
[2021-11-27] MEDS ORDERED: LEVOFLOXACIN 750MG PREMIX 150 ML IV SCH ×2 (21:00)
[2021-11-28] VITALS: BP 100/57
[2021-11-28] MEDS: ACETAMINOPHEN 325MG TABLET PO PRN (02:14)
[2021-11-28] MEDS: BLOOD SUGAR DIAGNOSTIC STRIP TEST SCH ×3 (05:54→17:02)
[2021-11-28] MEDS: LACTULOSE 20G/30ML UDC PO SCH ×2 (05:54→14:57)
[2021-11-28 06:47] LABS: BASOPHILS % 0.3 % (0.0-2.0); EOSINOPHILS % 2.3 % (0.0-5.0); HEMATOCRIT. 24.7 % (36.0-48.0); HEMOGLOBIN. 7.8 g/dL (12.0-16.0); LYMPHOCYTES % 10.1 % (20.0-50.0); MEAN CORPUSCULAR HEMOGLOBIN 26.7 pg (28.0-32.0); MEAN CORPUSCULAR VOLUME 83.9 fL (81.0-99.0); MEAN PLATELET VOLUME 9.5 fl (7.4-10.4); MONOCYTES % 10.5 % (2.0-8.0); NEUTROPHILS % 76.8 % (40.0-76.0); PLATELET 80 x1000/uL (130-400); RED BLOOD CELL COUNT 2.94 mill/uL (4.2-5.4); RED CELL DISTRIBUTION WIDTH 19.1 % (11.6-14.6)
[2021-11-28 07:08] LABS: CHLORIDE 110 mEq/L (98-107)
[2021-11-28] MEDS: INSULIN LISPRO 100 UNITS/ML SUBCUT SCH ×2 (07:40→14:56)
[2021-11-28 08:00] VITALS: BP 109/47
[2021-11-28] MEDS ORDERED: POTASSIUM CHLORIDE 20MEQ TABLET SR PO NR (09:45)
[2021-11-28] MEDS: PANTOPRAZOLE 40MG DR TABLET PO SCH (09:57)
[2021-11-28] MEDS: IRON SUCROSE COMPLEX 100 MG/5 ML ML IV SCH (09:57)
[2021-11-28 12:00] VITALS: BP 116/44
[2021-11-28 16:00] VITALS: BP 123/54
[2021-11-28 17:21] VITALS: BP 123/54
[2021-11-29 04:12] LABS: QFT MITOGEN VALUE >10.00 IU/mL (.); QFT TB GOLD PLUS Negative (Negative); QFT TB1 AG VALUE 0.07 IU/mL (.)
[2021-11-29] MEDS ORDERED: ASCORBIC ACID 500 MG TABLET PO SCH (08:00)
[2021-11-29] MEDS ORDERED: FERROUS SULFATE 325MG TABLET PO SCH (08:00)
[2021-11-29 10:18] LABS: PLATELET 85 x1000/uL (130-400)
== END 2021-11-28 20:25 | disposition home or self-care (01) | DRG 371 ==
LOC: ER 21:52 → 8WST 11-25 04:15 → ENRESERV 11-25 07:19
PROVIDERS: ADMIT Internal Medicine; ATTEND Internal Medicine
PROC: 0W9G3ZX Drainage of Peritoneal Cavity, Percutaneous Approach, Diagnostic (ICD-10-PCS; principal; 2021-11-26)
PROC: 30233N1 Transfusion of Nonautologous Red Blood Cells into Peripheral Vein, Percutaneous Approach (ICD-10-PCS; 2021-11-26)
DX: K65.2 Spontaneous bacterial peritonitis (principal); E43 Unspecified severe protein-calorie malnutrition; G93.41 Metabolic encephalopathy; R18.8 Other ascites; K76.6 Portal hypertension; K80.10 Calculus of gallbladder with chronic cholecystitis without obstruction; M48.56XA Collapsed vertebra, not elsewhere classified, lumbar region, initial encounter for fracture; D61.818 Other pancytopenia; D68.9 Coagulation defect, unspecified; E87.2 Acidosis; E72.20 Disorder of urea cycle metabolism, unspecified; K74.60 Unspecified cirrhosis of liver; E11.65 Type 2 diabetes mellitus with hyperglycemia; E78.5 Hyperlipidemia, unspecified; E87.6 Hypokalemia; M85.88 Other specified disorders of bone density and structure, other site; I12.9 Hypertensive chronic kidney disease with stage 1 through stage 4 chronic kidney disease, or unspecified chronic kidney disease; N18.9 Chronic kidney disease, unspecified; D72.825 Bandemia; E11.22 Type 2 diabetes mellitus with diabetic chronic kidney disease; D50.9 Iron deficiency anemia, unspecified; F32.A Depression, unspecified; M19.90 Unspecified osteoarthritis, unspecified site; E66.9 Obesity, unspecified; E80.6 Other disorders of bilirubin metabolism; D72.821 Monocytosis (symptomatic); K76.89 Other specified diseases of liver; Z68.31 Body mass index [BMI] 31.0-31.9, adult; Z79.84 Long term (current) use of oral hypoglycemic drugs; Z20.822 Contact with and (suspected) exposure to COVID-19; Z86.73 Personal history of transient ischemic attack (TIA), and cerebral infarction without residual deficits
CPT/HCPCS: 36415; 49083; 71045; 74176; 76700; 80048; 80053; 80061; 80076; 81003; 82040; 82140; 82248; 82270; 82607; 82728; 82746; 82962; 83036; 83540; 83550; 83605; 83615; 83735; 84100; 84145; 84443; 84484; 85025; 85027; 86480; 86705; 86709; 86803; 86850; 86900; 86920; 87340; 87426; 93005; 99285; J1815; J1956; J2185; J2543; J3490; J7030; J7050; P9016

== ENCOUNTER 2022-05-19 07:47 | Inpatient (IN) | payer MEDICARE, MEDICAID ==
[~2022-05-19] VITALS: Ht 167.6 cm; Wt 57.6 kg
[~2022-05-19 07:47] MED LIST changes: +LEVO-65 PO; -LEVO500T90 PO
[2022-05-19] MEDS ORDERED: ACETAMINOPHEN 325MG TABLET PO STA (08:26)
[2022-05-19 09:15] LABS: CHLORIDE 105 mEq/L (98-107)
[2022-05-19 09:21] LABS: BASOPHILS % 0.6 % (0.0-2.0); EOSINOPHILS % 5.4 % (0.0-5.0); HEMATOCRIT. 38.3 % (36.0-48.0); LYMPHOCYTES % 23.7 % (20.0-50.0); MEAN CORPUSCULAR HEMOGLOBIN 33.1 pg (28.0-32.0); MEAN CORPUSCULAR VOLUME 97.4 fL (81.0-99.0); MONOCYTES % 10.2 % (2.0-8.0); NEUTROPHILS % 60.1 % (40.0-76.0); PLATELET 70 x1000/uL (130-400); RED BLOOD CELL COUNT 3.93 mill/uL (4.2-5.4); RED CELL DISTRIBUTION WIDTH 16.5 % (11.6-14.6)
[2022-05-19] MEDS ORDERED: SODIUM CHLORIDE 0.9% 1,000 ML IV ONE (10:00)
[2022-05-19] MEDS ORDERED: ASPIRIN 325MG EC TABLET PO ONE (11:45)
[2022-05-19 13:56] LABS: CLARITY URINE CLEAR (CLEAR); COLOR URINE YELLOW (YELLOW); KETONES URINE NEGATIVE (NEGATIVE); LEUKOCYTE ESTERASE URINE 1+ (NEGATIVE); NITRITE URINE POSITIVE (NEGATIVE); OCCULT BLOOD URINE NEGATIVE (NEGATIVE); PROTEIN URINE NEGATIVE (NEGATIVE); SPECIFIC GRAVITY URINE 1.014 (1.005-1.030); UROBILINOGEN URINE 0.2 E.U./dL (0.2-1.0)
[2022-05-19] MEDS ORDERED: LEVOFLOXACIN 750MG PREMIX 150 ML IV ONE (14:15)
[2022-05-19] MEDS ORDERED: SODIUM CHLORIDE 0.9% 1,000 ML IV NR (16:30)
[2022-05-19] MEDS ORDERED: CEFTRIAXONE 1 G PREMIX 50 ML IV SCH (17:00)
[2022-05-19] MEDS ORDERED: DOCUSATE SODIUM 100MG CAPSULE PO PRN (18:00)
[2022-05-19] MEDS ORDERED: ONDANSETRON HCL 4MG/2ML INJ IV PRN (18:00)
[2022-05-19] MEDS ORDERED: ACETAMINOPHEN 325MG TABLET PO PRN ×2 (18:00)
[2022-05-19] MEDS ORDERED: CLONIDINE 0.1MG TABLET PO PRN (18:00)
[2022-05-19] MEDS ORDERED: TRAMADOL 50MG TABLET PO PRN (18:15)
[2022-05-19] MEDS ORDERED: NALOXONE HCL 0.4MG/ML VIAL IV PRN (18:15)
[2022-05-19] MEDS ORDERED: DEXTROSE 50% WATER 50ML SYRINGE IV PRN (18:15)
[2022-05-19 20:00] VITALS: BP 100/45
[2022-05-19] MEDS: BLOOD SUGAR DIAGNOSTIC STRIP TEST SCH ×2 (20:20→23:54)
[2022-05-19] MEDS: INSULIN LISPRO 100 UNITS/ML SUBCUT SCH ×2 (20:20→23:54)
[2022-05-19] MEDS: MIDODRINE HCL 5MG TABLET PO SCH (21:14)
[2022-05-19] MEDS: SODIUM CHLORIDE 0.9% 1,000 ML IV SCH (21:15)
[2022-05-20 00:11] VITALS: BP 110/54
[2022-05-20 04:00] VITALS: BP 109/46
[2022-05-20] MEDS: INSULIN LISPRO 100 UNITS/ML SUBCUT SCH ×3 (06:00→19:00)
[2022-05-20] MEDS: SODIUM CHLORIDE 0.9% 1,000 ML IV SCH (06:04)
[2022-05-20] MEDS: BLOOD SUGAR DIAGNOSTIC STRIP TEST SCH ×3 (06:04→17:35)
[2022-05-20 06:40] LABS: TOTAL IRON BINDING CAPACITY 243 ug/dL (250-450)
[2022-05-20 06:49] LABS: INR 1.5; PROTHROMBIN TIME 15.8 sec (9.6-11.0)
[2022-05-20 08:00] VITALS: BP 101/49
[2022-05-20] MEDS: MIDODRINE HCL 5MG TABLET PO SCH ×3 (08:42→17:33)
[2022-05-20] MEDS ORDERED: PANTOPRAZOLE 40MG DR TABLET PO SCH (09:00)
[2022-05-20 11:46] LABS: FERRITIN 47 ng/mL (10-291)
[2022-05-20 12:00] VITALS: BP 103/48
[2022-05-20 12:24] LABS: VITAMIN B12 SERUM >2000 pg/mL pg/mL (211-911)
[2022-05-20] MEDS ORDERED: PHYTONADIONE 10MG/ML AMP SUBCUT NR (15:00)
[2022-05-20 16:00] VITALS: BP 107/47
[2022-05-20 16:55] LABS: CHLORIDE 108 mEq/L (98-107)
[2022-05-20] MEDS ORDERED: CEFTRIAXONE 1,000 MG in DEXTROSE 5% WATER 50 ML IV SCH (17:00)
[2022-05-20 20:49] VITALS: BP 118/51
== END 2022-05-20 21:20 | disposition home or self-care (01) | DRG 312 ==
LOC: ER 07:54 → 7WST 12:19 → EDBEDREQ 12:21 → EDBEDREQTM 12:21 → EDBEDREQ 12:22 → SUPCPDRO 16:25
PROVIDERS: ADMIT Internal Medicine Pulmonary Disease; ATTEND Internal Medicine Pulmonary Disease
DX: I95.1 Orthostatic hypotension (principal); K76.6 Portal hypertension; M48.56XA Collapsed vertebra, not elsewhere classified, lumbar region, initial encounter for fracture; R18.8 Other ascites; D64.9 Anemia, unspecified; E11.9 Type 2 diabetes mellitus without complications; E78.00 Pure hypercholesterolemia, unspecified; I10 Essential (primary) hypertension; K80.20 Calculus of gallbladder without cholecystitis without obstruction; K74.60 Unspecified cirrhosis of liver; D72.819 Decreased white blood cell count, unspecified; M85.88 Other specified disorders of bone density and structure, other site; R29.6 Repeated falls; Z86.73 Personal history of transient ischemic attack (TIA), and cerebral infarction without residual deficits; Z88.0 Allergy status to penicillin; Z79.84 Long term (current) use of oral hypoglycemic drugs; Z79.899 Other long term (current) drug therapy
CPT/HCPCS: 36415; 71045; 72100; 76700; 80053; 81003; 82140; 82607; 82728; 82746; 82962; 83036; 83540; 83550; 83880; 84484; 85025; 87077; 87186; 87426; 93005; 99285; C9803; J0696; J1956; J3430; J7060

== ENCOUNTER 2022-06-02 09:16 | Inpatient (IN) | payer MEDICARE, MEDICAID ==
[~2022-06-02] VITALS: Ht 157.5 cm; Wt 54.7 kg
[2022-06-02 11:45] LABS: BASOPHILS % 0.4 % (0.0-2.0); EOSINOPHILS % 0.2 % (0.0-5.0); HEMATOCRIT. 41.3 % (36.0-48.0); HEMOGLOBIN. 13.9 g/dL (12.0-16.0); LYMPHOCYTES % 8.9 % (20.0-50.0); MEAN CORPUSCULAR HEMOGLOBIN 33.1 pg (28.0-32.0); MEAN CORPUSCULAR VOLUME 98.2 fL (81.0-99.0); MEAN PLATELET VOLUME 7.8 fl (7.4-10.4); MONOCYTES % 9.8 % (2.0-8.0); NEUTROPHILS % 80.7 % (40.0-76.0); PLATELET 94 x1000/uL (130-400); RED BLOOD CELL COUNT 4.21 mill/uL (4.2-5.4); RED CELL DISTRIBUTION WIDTH 16.8 % (11.6-14.6)
[2022-06-02] MEDS ORDERED: SODIUM CHLORIDE 0.9% 250 ML IV ONE (11:45)
[2022-06-02 11:52] LABS: CHLORIDE 105 mEq/L (98-107)
[2022-06-02 12:06] LABS: ETHANOL BLOOD < 10 mg/dL
[2022-06-02 12:09] LABS: CREATINE KINASE 50 IU/L (26-192)
[2022-06-02 15:37] LABS: CLARITY URINE CLOUDY (CLEAR); COLOR URINE ORANGE (YELLOW); KETONES URINE 1+ (NEGATIVE); LEUKOCYTE ESTERASE URINE 2+ (NEGATIVE); NITRITE URINE NEGATIVE (NEGATIVE); OCCULT BLOOD URINE NEGATIVE (NEGATIVE); PH URINE 5.5 (4.5-8.0); PROTEIN URINE NEGATIVE (NEGATIVE); SPECIFIC GRAVITY URINE 1.022 (1.005-1.030)
[2022-06-02 16:02] LABS: *AMPHETAMINES SCREEN URINE NEGATIVE (NEGATIVE); *BARBITURATES SCREEN URINE NEGATIVE (NEGATIVE); *BENZODIAZEPINES SCREEN URINE NEGATIVE (NEGATIVE); *COCAINE SCREEN URINE NEGATIVE (NEGATIVE); CANNABINOID URINE SCREEN NEGATIVE (NEGATIVE); METHADONE URINE SCREEN NEGATIVE (NEGATIVE); OPIATES URINE SCREEN NEGATIVE (NEGATIVE); PHENCYCLIDINE URINE SCREEN NEGATIVE (NEGATIVE)
[2022-06-02] MEDS ORDERED: ONDANSETRON HCL 4MG/2ML INJ IV PRN (18:15)
[2022-06-02] MEDS ORDERED: DIPHENHYDRAMINE 50MG/ML VIAL IV PRN (18:15)
[2022-06-02] MEDS ORDERED: MEROPENEM 500 MG in SODIUM CHLORIDE 0.9% 50 ML IV SCH (18:15)
[2022-06-02] MEDS ORDERED: ACETAMINOPHEN 325MG TABLET PO PRN ×2 (18:15)
[2022-06-02] MEDS ORDERED: DEXTROSE 50% WATER 50ML SYRINGE IV PRN (18:15)
[2022-06-02] MEDS ORDERED: MEROPENEM 1000MG in NORMAL SALINE 100ML IV SCH (18:30)
[2022-06-02 19:01] VITALS: BP 103/52
[2022-06-02 20:00] VITALS: BP 98/44
[2022-06-02] MEDS: BLOOD SUGAR DIAGNOSTIC STRIP TEST SCH (21:30)
[2022-06-02] MEDS: SODIUM CHLORIDE 0.9% 1,000 ML IV SCH (21:35)
[2022-06-02] MEDS: INSULIN LISPRO 100 UNITS/ML SUBCUT SCH (21:53)
[2022-06-02] MEDS: MEROPENEM 1000MG in NORMAL SALINE 100ML IV SCH (22:55)
[2022-06-03] VITALS: BP 116/49
[2022-06-03 04:00] VITALS: BP 106/52
[2022-06-03] MEDS: INSULIN LISPRO 100 UNITS/ML SUBCUT SCH ×4 (06:18→21:00)
[2022-06-03] MEDS: BLOOD SUGAR DIAGNOSTIC STRIP TEST SCH ×4 (06:18→21:00)
[2022-06-03 08:00] VITALS: BP 102/52
[2022-06-03] MEDS: MEROPENEM 1000MG in NORMAL SALINE 100ML IV SCH ×2 (08:38→21:00)
[2022-06-03] MEDS ORDERED: PANTOPRAZOLE SODIUM 40 MG/VIAL IV SCH (09:00)
[2022-06-03 12:00] VITALS: BP 99/43
[2022-06-03] MEDS: SODIUM CHLORIDE 0.9% 1,000 ML IV SCH (15:31)
[2022-06-03 16:00] VITALS: BP 109/46
[2022-06-03 20:00] VITALS: BP 105/49
[2022-06-03] MEDS: OMEPRAZOLE 20MG CAPSULE EXTENDED RELEASE PO SCH (20:57)
[2022-06-04] VITALS: BP 113/54
[2022-06-04 04:00] VITALS: BP 107/49
[2022-06-04] MEDS: INSULIN LISPRO 100 UNITS/ML SUBCUT SCH ×4 (06:19→20:53)
[2022-06-04] MEDS: BLOOD SUGAR DIAGNOSTIC STRIP TEST SCH ×4 (06:19→20:53)
[2022-06-04] MEDS: OMEPRAZOLE 20MG CAPSULE EXTENDED RELEASE PO SCH ×2 (06:24→21:14)
[2022-06-04 07:46] VITALS: BP 97/51
[2022-06-04] MEDS: MEROPENEM 1000MG in NORMAL SALINE 100ML IV SCH ×2 (09:42→21:08)
[2022-06-04 16:00] VITALS: BP 122/61
[2022-06-04 17:09] LABS: BASOPHILS % 1.2 % (0.0-2.0); EOSINOPHILS % 3.8 % (0.0-5.0); HEMATOCRIT. 33.6 % (36.0-48.0); HEMOGLOBIN. 11.4 g/dL (12.0-16.0); MEAN CORPUSCULAR HEMOGLOBIN 33.2 pg (28.0-32.0); MEAN PLATELET VOLUME 8.5 fl (7.4-10.4); MONOCYTES % 12.9 % (2.0-8.0); NEUTROPHILS % 64.1 % (40.0-76.0); PLATELET 78 x1000/uL (130-400); RED BLOOD CELL COUNT 3.42 mill/uL (4.2-5.4); RED CELL DISTRIBUTION WIDTH 16.5 % (11.6-14.6)
[2022-06-04 17:23] LABS: CHLORIDE 101 mEq/L (98-107)
[2022-06-05] VITALS: BP 103/49
[2022-06-05 04:00] VITALS: BP 103/54
[2022-06-05] MEDS: BLOOD SUGAR DIAGNOSTIC STRIP TEST SCH ×4 (06:28→20:23)
[2022-06-05] MEDS: INSULIN LISPRO 100 UNITS/ML SUBCUT SCH ×4 (06:28→21:00)
[2022-06-05 06:40] LABS: HEMATOCRIT. 30.1 % (36.0-48.0); HEMOGLOBIN. 10.5 g/dL (12.0-16.0); MEAN CORPUSCULAR HEMOGLOBIN 33.8 pg (28.0-32.0); MEAN CORPUSCULAR VOLUME 96.8 fL (81.0-99.0); MEAN PLATELET VOLUME 8.4 fl (7.4-10.4); PLATELET 73 x1000/uL (130-400); RED BLOOD CELL COUNT 3.11 mill/uL (4.2-5.4); RED CELL DISTRIBUTION WIDTH 16.1 % (11.6-14.6)
[2022-06-05] MEDS: OMEPRAZOLE 20MG CAPSULE EXTENDED RELEASE PO SCH ×2 (06:47→21:00)
[2022-06-05 08:00] VITALS: BP 98/52
[2022-06-05] MEDS: MEROPENEM 1000MG in NORMAL SALINE 100ML IV SCH ×2 (08:37→21:00)
[2022-06-05 12:00] VITALS: BP 108/55
[2022-06-05 12:24] LABS: NUCLEATED RED BLOOD CELLS 1 /100 WBC
[2022-06-05 12:25] LABS: PLATELET ESTIMATE DECREASED
[2022-06-05 14:01] LABS: CHLORIDE 104 mEq/L (98-107)
[2022-06-05 16:00] VITALS: BP 106/58
[2022-06-05 20:00] VITALS: BP 106/62
[2022-06-06] VITALS: BP 102/50
[2022-06-06 04:00] VITALS: BP 115/59
[2022-06-06] MEDS: OMEPRAZOLE 20MG CAPSULE EXTENDED RELEASE PO SCH (06:23)
[2022-06-06] MEDS: BLOOD SUGAR DIAGNOSTIC STRIP TEST SCH ×2 (06:23→12:30)
[2022-06-06] MEDS: INSULIN LISPRO 100 UNITS/ML SUBCUT SCH ×2 (06:30→12:10)
[2022-06-06 08:00] VITALS: BP 182/69
[2022-06-06] MEDS: MEROPENEM 1000MG in NORMAL SALINE 100ML IV SCH (09:12)
[2022-06-06 12:00] VITALS: BP 158/48
[2022-06-06] MEDS ORDERED: LIDOCAINE HCL 1% 10 MG/ML 10ML VIAL ONE (13:59)
[2022-06-06 16:00] VITALS: BP 124/42
[2022-06-06 16:55] VITALS: BP 124/42
== END 2022-06-06 18:07 | disposition home health service (06) | DRG 871 ==
LOC: ER 09:16 → 7EST 12:08
PROVIDERS: ADMIT Internal Medicine; ATTEND Internal Medicine
PROC: 02HV33Z Insertion of Infusion Device into Superior Vena Cava, Percutaneous Approach (ICD-10-PCS; principal; 2022-06-03)
PROC: B548ZZA Ultrasonography of Superior Vena Cava, Guidance (ICD-10-PCS; 2022-06-03)
PROC: 02HV33Z Insertion of Infusion Device into Superior Vena Cava, Percutaneous Approach (ICD-10-PCS; 2022-06-06)
PROC: B548ZZA Ultrasonography of Superior Vena Cava, Guidance (ICD-10-PCS; 2022-06-06)
PROC: B5181ZA Fluoroscopy of Superior Vena Cava using Low Osmolar Contrast, Guidance (ICD-10-PCS; 2022-06-06)
DX: A41.9 Sepsis, unspecified organism (principal); G93.41 Metabolic encephalopathy; N39.0 Urinary tract infection, site not specified; I69.351 Hemiplegia and hemiparesis following cerebral infarction affecting right dominant side; K74.60 Unspecified cirrhosis of liver; M19.90 Unspecified osteoarthritis, unspecified site; E11.9 Type 2 diabetes mellitus without complications; E78.00 Pure hypercholesterolemia, unspecified; I10 Essential (primary) hypertension; Z88.0 Allergy status to penicillin
CPT/HCPCS: 36415; 36573; 70551; 71045; 80048; 80053; 80305; 80320; 81003; 82140; 82550; 82962; 83036; 83880; 84443; 84484; 85025; 87077; 87186; 93005; 97162; 99285; C1725; C9113; J1815; J2185; J3490; J7050; G0480

== ENCOUNTER 2022-06-19 12:21 | Emergency (ER) | payer MEDICARE, MEDICAID ==
[~2022-06-19] VITALS: Ht 152.4 cm; Wt 54.0 kg
[2022-06-19 12:39] VITALS: BP 121/44
== END 2022-06-19 17:02 | disposition home or self-care (01) ==
LOC: ER 12:21
DX: M79.601 Pain in right arm (principal); R41.82 Altered mental status, unspecified; E11.9 Type 2 diabetes mellitus without complications; E78.00 Pure hypercholesterolemia, unspecified; I10 Essential (primary) hypertension; Z79.899 Other long term (current) drug therapy; Z88.0 Allergy status to penicillin
CPT/HCPCS: 93971; 99284

== ENCOUNTER 2022-06-21 10:12 | Inpatient (IN) | payer MEDICARE, MEDICAID ==
[~2022-06-21] VITALS: Ht 154.9 cm; Wt 50.8 kg
[2022-06-21] MEDS ORDERED: VANCOMYCIN 1G PREMIX 200 ML IV ONE (10:45)
[2022-06-21] MEDS ORDERED: SODIUM CHLORIDE 0.9% 1000ML BAG (SEPSIS BOLUS) IV ONE (10:45)
[2022-06-21] MEDS ORDERED: MEROPENEM 1,000 MG in SODIUM CHLORIDE 0.9% 100 ML IV ONE (10:45)
[2022-06-21 11:11] LABS: HEMOGLOBIN. 11.6 g/dL (12.0-16.0); LYMPHOCYTES % 24.2 % (20.0-50.0); MEAN CORPUSCULAR HEMOGLOBIN 33.6 pg (28.0-32.0); MEAN CORPUSCULAR VOLUME 98.7 fL (81.0-99.0); MEAN PLATELET VOLUME 8.8 fl (7.4-10.4); MONOCYTES % 12.8 % (2.0-8.0); PLATELET 99 x1000/uL (130-400); RED BLOOD CELL COUNT 3.45 mill/uL (4.2-5.4); RED CELL DISTRIBUTION WIDTH 17.5 % (11.6-14.6)
[2022-06-21 11:20] LABS: CHLORIDE 110 mEq/L (98-107); INR 1.3; PROTHROMBIN TIME 14.2 sec (9.6-11.0)
[2022-06-21 11:41] LABS: CLARITY URINE CLEAR (CLEAR); COLOR URINE YELLOW (YELLOW); KETONES URINE NEGATIVE (NEGATIVE); LEUKOCYTE ESTERASE URINE NEGATIVE (NEGATIVE); NITRITE URINE NEGATIVE (NEGATIVE); OCCULT BLOOD URINE NEGATIVE (NEGATIVE); PH URINE 8.5 (4.5-8.0); PROTEIN URINE NEGATIVE (NEGATIVE); SPECIFIC GRAVITY URINE 1.013 (1.005-1.030); UROBILINOGEN URINE 0.2 E.U./dL (0.2-1.0)
[2022-06-21] MEDS ORDERED: IPRATROPIUM/ALBUTEROL 0.5-3(2.5)MG/3ML NEB HHN PRN (16:15)
[2022-06-21] MEDS ORDERED: ONDANSETRON HCL 4MG/2ML INJ IV PRN (16:15)
[2022-06-21 21:00] VITALS: BP 112/48
[2022-06-22] VITALS: BP 127/56
[2022-06-22 00:43] LABS: CREATINE KINASE MB FRACTION 1.9 ng/mL (0.5-3.6)
[2022-06-22] MEDS ORDERED: DEXTROSE 50% WATER 50ML SYRINGE IV PRN (00:45)
[2022-06-22 04:00] VITALS: BP 120/72
[2022-06-22 06:16] LABS: CREATINE KINASE MB FRACTION 1.9 ng/mL (0.5-3.6)
[2022-06-22] MEDS: BLOOD SUGAR DIAGNOSTIC STRIP TEST SCH ×4 (07:40→20:02)
[2022-06-22 08:01] VITALS: BP 104/50
[2022-06-22] MEDS ORDERED: ALBUTEROL (0.083%) 2.5MG/3ML NEB HHN PRN (11:45)
[2022-06-22] MEDS ORDERED: IPRATROPIUM BROMIDE (0.02%) 0.5MG/2.5ML NEB HHN PRN (11:45)
[2022-06-22 12:03] VITALS: BP 112/51
[2022-06-22 12:19] LABS: BG BASE EXCESS -5.1 mmol/L (-2.0-2.0); BG CARBOXYHEMOGLOBIN 0.9 % (0.5-1.5); BG DEOXYHEMOGLOBIN 5.9 % (0.0-5.0); BG HCO3 ACT 16.8 mmol/L (22.0-26.0); BG METHEMOGLOBIN 0.3 % (0.0-1.5); BG OXYHEMOGLOBIN 92.9 % (94.0-97.0); BG PCO2 23.9 mmHg (35.0-45.0); BG PH 7.466 (7.350-7.450); BG PO2 73.7 mmHg (75.0-100.0); BG SAMPLE SITE RIGHT RADIAL; BG TOTAL HEMOGLOBIN 13.2 g/dL (12.0-18.0); BG VENT MODE ROOM AIR
[2022-06-22 13:35] LABS: CHLORIDE 113 mEq/L (98-107)
[2022-06-22] MEDS: VANCOMYCIN 1G PREMIX 200 ML IV SCH (14:46)
[2022-06-22 15:46] VITALS: BP 119/55
[2022-06-22 15:57] LABS: BASOPHILS % 1.9 % (0.0-2.0); EOSINOPHILS % 5.5 % (0.0-5.0); HEMATOCRIT. 40.7 % (36.0-48.0); HEMOGLOBIN. 13.7 g/dL (12.0-16.0); LYMPHOCYTES % 24.4 % (20.0-50.0); MEAN CORPUSCULAR HEMOGLOBIN 34.1 pg (28.0-32.0); MEAN CORPUSCULAR VOLUME 100.9 fL (81.0-99.0); MEAN PLATELET VOLUME 8.9 fl (7.4-10.4); MONOCYTES % 12.9 % (2.0-8.0); NEUTROPHILS % 55.3 % (40.0-76.0); PLATELET 101 x1000/uL (130-400); RED BLOOD CELL COUNT 4.03 mill/uL (4.2-5.4); RED CELL DISTRIBUTION WIDTH 17.9 % (11.6-14.6)
[2022-06-22] MEDS: PIPERACILLIN/TAZOBACTAM 3.375 G in DEXTROSE 5% WATER 50 ML IV SCH ×2 (16:09→21:27)
[2022-06-22 20:00] VITALS: BP 110/51
[2022-06-23] VITALS: BP 108/48
[2022-06-23 04:00] VITALS: BP 111/49
[2022-06-23] MEDS: PIPERACILLIN/TAZOBACTAM 3.375 G in DEXTROSE 5% WATER 50 ML IV SCH ×3 (05:37→21:02)
[2022-06-23] MEDS: BLOOD SUGAR DIAGNOSTIC STRIP TEST SCH ×4 (07:40→21:02)
[2022-06-23 08:00] VITALS: BP 126/55
[2022-06-23 12:00] VITALS: BP 114/47
[2022-06-23] MEDS: LACTULOSE 20G/30ML UDC PO SCH ×2 (14:16→21:02)
[2022-06-23] MEDS: PANTOPRAZOLE SODIUM 40 MG/VIAL IV SCH (14:16)
[2022-06-23] MEDS: FUROSEMIDE 40MG TABLET PO SCH (14:16)
[2022-06-23] MEDS: VANCOMYCIN 1G PREMIX 200 ML IV SCH (14:17)
[2022-06-23 15:27] LABS: HEMATOCRIT. 35.3 % (36.0-48.0); HEMOGLOBIN. 11.9 g/dL (12.0-16.0); MEAN CORPUSCULAR HEMOGLOBIN 33.2 pg (28.0-32.0); MEAN CORPUSCULAR VOLUME 98.3 fL (81.0-99.0); MEAN PLATELET VOLUME 8.3 fl (7.4-10.4); PLATELET 102 x1000/uL (130-400); RED BLOOD CELL COUNT 3.59 mill/uL (4.2-5.4); RED CELL DISTRIBUTION WIDTH 17.4 % (11.6-14.6)
[2022-06-23 15:43] LABS: CHLORIDE 109 mEq/L (98-107)
[2022-06-23 16:00] VITALS: BP 108/50
[2022-06-23 17:42] LABS: PLATELET ESTIMATE DECREASED
[2022-06-23 20:00] VITALS: BP 122/58
[2022-06-23] MEDS: RIFAXIMIN 550 MG TABLET PO SCH (21:02)
[2022-06-24] VITALS: BP 115/57
[2022-06-24 04:00] VITALS: BP 121/54
[2022-06-24] MEDS: LACTULOSE 20G/30ML UDC PO SCH ×3 (05:32→22:24)
[2022-06-24] MEDS: PIPERACILLIN/TAZOBACTAM 3.375 G in DEXTROSE 5% WATER 50 ML IV SCH ×3 (05:32→22:24)
[2022-06-24] MEDS: BLOOD SUGAR DIAGNOSTIC STRIP TEST SCH ×6 (06:42→21:00)
[2022-06-24 08:15] LABS: HEMATOCRIT. 35.6 % (36.0-48.0); HEMOGLOBIN. 12.4 g/dL (12.0-16.0); MEAN CORPUSCULAR VOLUME 97.5 fL (81.0-99.0); MEAN PLATELET VOLUME 8.6 fl (7.4-10.4); PLATELET 94 x1000/uL (130-400); RED BLOOD CELL COUNT 3.65 mill/uL (4.2-5.4); RED CELL DISTRIBUTION WIDTH 17.2 % (11.6-14.6)
[2022-06-24 08:37] LABS: CHLORIDE 106 mEq/L (98-107)
[2022-06-24] MEDS: PANTOPRAZOLE SODIUM 40 MG/VIAL IV SCH (09:09)
[2022-06-24] MEDS: FUROSEMIDE 40MG TABLET PO SCH (09:09)
[2022-06-24] MEDS: RIFAXIMIN 550 MG TABLET PO SCH ×2 (09:09→22:26)
[2022-06-24 09:14] LABS: PLATELET ESTIMATE DECREASED
[2022-06-24 12:00] VITALS: BP 103/52
[2022-06-24] MEDS: VANCOMYCIN 750MG PREMIX 150 ML IV SCH (14:05)
[2022-06-24 16:00] VITALS: BP 128/58
[2022-06-24] MEDS ORDERED: DEXTROSE 50% WATER 50ML SYRINGE IV PRN (16:30)
[2022-06-24] MEDS: INSULIN LISPRO 100 UNITS/ML SUBCUT SCH ×2 (17:35→23:25)
[2022-06-24 20:00] VITALS: BP 112/62
[2022-06-24] MEDS: ACETAMINOPHEN 325MG TABLET PO PRN (22:25)
[2022-06-25] VITALS: BP 117/61
[2022-06-25 04:00] VITALS: BP 116/64
[2022-06-25 06:00] LABS: HEMATOCRIT. 36.3 % (36.0-48.0); HEMOGLOBIN. 12.4 g/dL (12.0-16.0); MEAN CORPUSCULAR HEMOGLOBIN 33.4 pg (28.0-32.0); MEAN CORPUSCULAR VOLUME 97.7 fL (81.0-99.0); MEAN PLATELET VOLUME 9.2 fl (7.4-10.4); PLATELET 87 x1000/uL (130-400); RED BLOOD CELL COUNT 3.72 mill/uL (4.2-5.4); RED CELL DISTRIBUTION WIDTH 17.2 % (11.6-14.6)
[2022-06-25] MEDS: PIPERACILLIN/TAZOBACTAM 3.375 G in DEXTROSE 5% WATER 50 ML IV SCH ×3 (06:24→21:29)
[2022-06-25] MEDS: LACTULOSE 20G/30ML UDC PO SCH ×3 (06:24→21:29)
[2022-06-25] MEDS: BLOOD SUGAR DIAGNOSTIC STRIP TEST SCH ×8 (07:40→21:25)
[2022-06-25 07:55] LABS: CHLORIDE 102 mEq/L (98-107)
[2022-06-25 08:00] VITALS: BP 109/56
[2022-06-25] MEDS: INSULIN LISPRO 100 UNITS/ML SUBCUT SCH ×4 (08:10→21:00)
[2022-06-25] MEDS: PANTOPRAZOLE SODIUM 40 MG/VIAL IV SCH (08:31)
[2022-06-25] MEDS: FUROSEMIDE 40MG TABLET PO SCH (08:31)
[2022-06-25] MEDS: RIFAXIMIN 550 MG TABLET PO SCH ×2 (08:31→21:29)
[2022-06-25] MEDS: ACETAMINOPHEN 325MG TABLET PO PRN (08:37)
[2022-06-25 11:19] LABS: PLATELET ESTIMATE DECREASED
[2022-06-25 12:00] VITALS: BP 98/52
[2022-06-25] MEDS: VANCOMYCIN 750MG PREMIX 150 ML IV SCH (13:08)
[2022-06-25 16:00] VITALS: BP 98/42
[2022-06-25 20:00] VITALS: BP 108/72
[2022-06-26] VITALS: BP 116/81
[2022-06-26 04:00] VITALS: BP 118/72
[2022-06-26] MEDS: PIPERACILLIN/TAZOBACTAM 3.375 G in DEXTROSE 5% WATER 50 ML IV SCH ×3 (05:13→21:41)
[2022-06-26] MEDS: LACTULOSE 20G/30ML UDC PO SCH ×3 (05:14→21:41)
[2022-06-26 06:13] LABS: HEMATOCRIT. 36.5 % (36.0-48.0); HEMOGLOBIN. 12.5 g/dL (12.0-16.0); MEAN CORPUSCULAR HEMOGLOBIN 33.4 pg (28.0-32.0); MEAN CORPUSCULAR VOLUME 97.5 fL (81.0-99.0); MEAN PLATELET VOLUME 8.8 fl (7.4-10.4); PLATELET 82 x1000/uL (130-400); RED BLOOD CELL COUNT 3.74 mill/uL (4.2-5.4); RED CELL DISTRIBUTION WIDTH 16.9 % (11.6-14.6)
[2022-06-26] MEDS: BLOOD SUGAR DIAGNOSTIC STRIP TEST SCH ×7 (07:34→21:41)
[2022-06-26] MEDS: INSULIN LISPRO 100 UNITS/ML SUBCUT SCH ×4 (07:36→21:00)
[2022-06-26 08:00] VITALS: BP 108/53
[2022-06-26 08:25] LABS: CHLORIDE 107 mEq/L (98-107)
[2022-06-26] MEDS: RIFAXIMIN 550 MG TABLET PO SCH ×2 (08:43→21:40)
[2022-06-26] MEDS: PANTOPRAZOLE SODIUM 40 MG/VIAL IV SCH (08:43)
[2022-06-26] MEDS: FUROSEMIDE 40MG TABLET PO SCH (08:43)
[2022-06-26 11:46] VITALS: BP 108/57
[2022-06-26] MEDS: VANCOMYCIN 750MG PREMIX 150 ML IV SCH (13:05)
[2022-06-26 14:00] LABS: PLATELET ESTIMATE DECREASED
[2022-06-26 16:17] VITALS: BP 126/58
[2022-06-26 20:00] VITALS: BP 103/48
[2022-06-27] VITALS: BP 105/47
[2022-06-27 04:00] VITALS: BP 97/47
[2022-06-27] MEDS: LACTULOSE 20G/30ML UDC PO SCH ×2 (05:32→17:00)
[2022-06-27] MEDS: PIPERACILLIN/TAZOBACTAM 3.375 G in DEXTROSE 5% WATER 50 ML IV SCH ×2 (05:35→17:00)
[2022-06-27] MEDS: BLOOD SUGAR DIAGNOSTIC STRIP TEST SCH ×2 (06:21→12:23)
[2022-06-27 08:00] VITALS: BP 89/50
[2022-06-27] MEDS: INSULIN LISPRO 100 UNITS/ML SUBCUT SCH ×2 (08:00→12:30)
[2022-06-27] MEDS: FUROSEMIDE 40MG TABLET PO SCH (09:00)
[2022-06-27] MEDS: RIFAXIMIN 550 MG TABLET PO SCH (09:16)
[2022-06-27] MEDS: PANTOPRAZOLE SODIUM 40 MG/VIAL IV SCH (09:16)
[2022-06-27 11:54] VITALS: BP 104/52
[2022-06-27 16:00] VITALS: BP 118/80
[2022-06-27] MEDS: VANCOMYCIN 750MG PREMIX 150 ML IV SCH (17:00)
[2022-06-27 17:35] VITALS: BP 118/80
== END 2022-06-27 17:30 | disposition home health service (06) | DRG 441 ==
LOC: ER 10:12 → 7WST 16:07 → ENRESERV 19:47
PROVIDERS: ADMIT Internal Medicine; ATTEND Internal Medicine
DX: K76.82 Hepatic encephalopathy (principal); J18.9 Pneumonia, unspecified organism; D61.818 Other pancytopenia; K74.60 Unspecified cirrhosis of liver; E11.9 Type 2 diabetes mellitus without complications; Z20.822 Contact with and (suspected) exposure to COVID-19; E78.00 Pure hypercholesterolemia, unspecified; F03.90 Unspecified dementia, unspecified severity, without behavioral disturbance, psychotic disturbance, mood disturbance, and anxiety; I10 Essential (primary) hypertension; M19.90 Unspecified osteoarthritis, unspecified site; Z86.73 Personal history of transient ischemic attack (TIA), and cerebral infarction without residual deficits; Z88.0 Allergy status to penicillin
CPT/HCPCS: 36415; 36600; 70551; 71045; 80048; 80053; 80076; 80202; 81003; 82140; 82375; 82550; 82553; 82805; 82962; 83036; 83605; 84145; 84484; 85025; 87426; 92610; 93005; 93970; 97162; 99291; C9113; C9803; J1815; J2185; J2543; J3370; J7030; J7050; J7060; A4315

== ENCOUNTER 2022-07-20 06:16 | Inpatient (IN) | payer MEDICARE, MEDICAID ==
[~2022-07-20] VITALS: Ht 165.1 cm; Wt 61.7 kg
[2022-07-20 08:09] LABS: BASOPHILS % 1.4 % (0.0-2.0); EOSINOPHILS % 5.4 % (0.0-5.0); HEMATOCRIT. 42.3 % (36.0-48.0); HEMOGLOBIN. 14.2 g/dL (12.0-16.0); LYMPHOCYTES % 30.1 % (20.0-50.0); MEAN CORPUSCULAR HEMOGLOBIN 33.6 pg (28.0-32.0); MEAN CORPUSCULAR VOLUME 99.9 fL (81.0-99.0); MEAN PLATELET VOLUME 7.2 fl (7.4-10.4); MONOCYTES % 11.3 % (2.0-8.0); NEUTROPHILS % 51.8 % (40.0-76.0); PLATELET 142 x1000/uL (130-400); RED BLOOD CELL COUNT 4.23 mill/uL (4.2-5.4); RED CELL DISTRIBUTION WIDTH 16.3 % (11.6-14.6)
[2022-07-20 08:17] LABS: INR 1.3; PROTHROMBIN TIME 14.2 sec (9.6-11.0)
[2022-07-20 08:18] LABS: CHLORIDE 104 mEq/L (98-107)
[2022-07-20 08:32] LABS: CLARITY URINE CLEAR (CLEAR); COLOR URINE YELLOW (YELLOW); KETONES URINE NEGATIVE (NEGATIVE); LEUKOCYTE ESTERASE URINE NEGATIVE (NEGATIVE); NITRITE URINE POSITIVE (NEGATIVE); OCCULT BLOOD URINE NEGATIVE (NEGATIVE); PROTEIN URINE NEGATIVE (NEGATIVE); SPECIFIC GRAVITY URINE 1.011 (1.005-1.030)
[2022-07-20] MEDS ORDERED: CEFTRIAXONE 1GM PREMIX 50 ML IV NR (09:15)
[2022-07-20] MEDS ORDERED: SODIUM CHLORIDE 0.9% 1,000 ML IV ONE (09:45)
[2022-07-20 18:00] VITALS: BP 145/61
[2022-07-20 20:00] VITALS: BP 120/46
[2022-07-20] MEDS: BLOOD SUGAR DIAGNOSTIC STRIP TEST SCH (21:00)
[2022-07-20] MEDS ORDERED: DEXTROSE 50% WATER 50ML SYRINGE IV PRN (21:00)
[2022-07-20] MEDS: INSULIN LISPRO 100 UNITS/ML SUBCUT SCH (21:00)
[2022-07-20] MEDS ORDERED: ACETAMINOPHEN 650MG/20.3ML UDC PO PRN (21:00)
[2022-07-20 23:58] LABS: INR 1.3; PROTHROMBIN TIME 13.7 sec (9.6-11.0)
[2022-07-21] VITALS: BP 119/56
[2022-07-21 04:00] VITALS: BP 121/49
[2022-07-21 06:33] LABS: CHLORIDE 106 mEq/L (98-107)
[2022-07-21 06:39] LABS: BASOPHILS % 2.5 % (0.0-2.0); EOSINOPHILS % 8.1 % (0.0-5.0); HEMATOCRIT. 34.6 % (36.0-48.0); HEMOGLOBIN. 11.8 g/dL (12.0-16.0); LYMPHOCYTES % 22.2 % (20.0-50.0); MEAN CORPUSCULAR HEMOGLOBIN 34.1 pg (28.0-32.0); MEAN CORPUSCULAR VOLUME 99.6 fL (81.0-99.0); MEAN PLATELET VOLUME 7.2 fl (7.4-10.4); MONOCYTES % 13.3 % (2.0-8.0); NEUTROPHILS % 53.9 % (40.0-76.0); PLATELET 122 x1000/uL (130-400); RED BLOOD CELL COUNT 3.47 mill/uL (4.2-5.4); RED CELL DISTRIBUTION WIDTH 16.5 % (11.6-14.6)
[2022-07-21] MEDS: BLOOD SUGAR DIAGNOSTIC STRIP TEST SCH ×4 (06:45→20:47)
[2022-07-21] MEDS: INSULIN LISPRO 100 UNITS/ML SUBCUT SCH ×4 (06:45→21:09)
[2022-07-21 08:00] VITALS: BP 124/50
[2022-07-21] MEDS ORDERED: CEFTRIAXONE 1,000 MG in DEXTROSE 5% WATER 50 ML IV SCH (09:00)
[2022-07-21] MEDS ORDERED: LACTULOSE 20G/30ML UDC PO SCH (09:00)
[2022-07-21] MEDS: LACTULOSE 20G/30ML UDC PO SCH ×3 (09:42→21:09)
[2022-07-21] MEDS: PANTOPRAZOLE 40MG DR TABLET PO SCH (09:43)
[2022-07-21 12:00] VITALS: BP 111/57
[2022-07-21] MEDS: MEROPENEM-0.9% SODIUM CHLORIDE 100 ML IV SCH ×2 (12:52→21:09)
[2022-07-21 16:00] VITALS: BP 99/47
[2022-07-21 20:00] VITALS: BP 99/70
[2022-07-22] VITALS: BP 106/55
[2022-07-22 04:00] VITALS: BP 113/57
[2022-07-22] MEDS: BLOOD SUGAR DIAGNOSTIC STRIP TEST SCH ×4 (05:42→20:58)
[2022-07-22] MEDS: PANTOPRAZOLE 40MG DR TABLET PO SCH (05:50)
[2022-07-22] MEDS: MEROPENEM-0.9% SODIUM CHLORIDE 100 ML IV SCH ×4 (05:50→22:37)
[2022-07-22] MEDS: LACTULOSE 20G/30ML UDC PO SCH ×3 (05:50→22:30)
[2022-07-22] MEDS: INSULIN LISPRO 100 UNITS/ML SUBCUT SCH ×4 (06:35→21:00)
[2022-07-22 08:00] VITALS: BP 90/55
[2022-07-22 12:00] VITALS: BP 97/54
[2022-07-22 16:00] VITALS: BP 95/50
[2022-07-22 20:00] VITALS: BP 101/54
[2022-07-23] VITALS: BP 98/49
[2022-07-23 04:00] VITALS: BP 102/47
[2022-07-23] MEDS: BLOOD SUGAR DIAGNOSTIC STRIP TEST SCH ×4 (05:49→21:00)
[2022-07-23] MEDS: MEROPENEM-0.9% SODIUM CHLORIDE 100 ML IV SCH ×2 (06:06→15:23)
[2022-07-23] MEDS: INSULIN LISPRO 100 UNITS/ML SUBCUT SCH ×4 (06:08→22:29)
[2022-07-23] MEDS: LACTULOSE 20G/30ML UDC PO SCH ×3 (06:08→21:20)
[2022-07-23] MEDS: PANTOPRAZOLE 40MG DR TABLET PO SCH (06:08)
[2022-07-23 06:41] LABS: HEMATOCRIT. 33.2 % (36.0-48.0); HEMOGLOBIN. 11.5 g/dL (12.0-16.0); MEAN CORPUSCULAR HEMOGLOBIN 34.4 pg (28.0-32.0); MEAN CORPUSCULAR VOLUME 99.1 fL (81.0-99.0); MEAN PLATELET VOLUME 7.8 fl (7.4-10.4); PLATELET 104 x1000/uL (130-400); RED BLOOD CELL COUNT 3.35 mill/uL (4.2-5.4); RED CELL DISTRIBUTION WIDTH 16.1 % (11.6-14.6)
[2022-07-23 07:27] LABS: CHLORIDE 105 mEq/L (98-107)
[2022-07-23 08:00] VITALS: BP 100/61
[2022-07-23 12:00] VITALS: BP 104/48
[2022-07-23 14:27] LABS: PLATELET ESTIMATE DECREASED
[2022-07-23 16:00] VITALS: BP 95/48
[2022-07-23 20:00] VITALS: BP 115/58
[2022-07-23] MEDS: MEROPENEM 1000MG in NORMAL SALINE 100ML IV SCH (21:20)
[2022-07-24] VITALS: BP 113/50
[2022-07-24 04:00] VITALS: BP 117/63
[2022-07-24] MEDS: MEROPENEM 1000MG in NORMAL SALINE 100ML IV SCH ×3 (06:36→21:49)
[2022-07-24] MEDS: LACTULOSE 20G/30ML UDC PO SCH ×3 (06:36→21:49)
[2022-07-24] MEDS: PANTOPRAZOLE 40MG DR TABLET PO SCH (06:37)
[2022-07-24] MEDS: BLOOD SUGAR DIAGNOSTIC STRIP TEST SCH ×4 (07:30→21:50)
[2022-07-24] MEDS: INSULIN LISPRO 100 UNITS/ML SUBCUT SCH ×4 (07:30→22:05)
[2022-07-24 08:00] VITALS: BP 107/53
[2022-07-24 16:00] VITALS: BP 108/57
[2022-07-24 20:00] VITALS: BP 104/47
[2022-07-25] VITALS (7 sets, daily range): BP systolic 20–112; BP diastolic 45–110
[2022-07-25] MEDS: LACTULOSE 20G/30ML UDC PO SCH ×3 (06:00→14:39)
[2022-07-25] MEDS: MEROPENEM 1000MG in NORMAL SALINE 100ML IV SCH ×2 (06:32→14:33)
[2022-07-25] MEDS: PANTOPRAZOLE 40MG DR TABLET PO SCH (06:36)
[2022-07-25] MEDS: BLOOD SUGAR DIAGNOSTIC STRIP TEST SCH ×3 (07:26→17:20)
[2022-07-25] MEDS: INSULIN LISPRO 100 UNITS/ML SUBCUT SCH ×3 (07:50→17:50)
== END 2022-07-25 19:47 | DRG 689 ==
LOC: ER 06:23 → 7EST 09:35 → 6EST 07-23 09:51
PROVIDERS: ADMIT Internal Medicine; ATTEND Internal Medicine
DX: N39.0 Urinary tract infection, site not specified (principal); G92.8 Other toxic encephalopathy; Z16.12 Extended spectrum beta lactamase (ESBL) resistance; K74.60 Unspecified cirrhosis of liver; E78.00 Pure hypercholesterolemia, unspecified; E11.9 Type 2 diabetes mellitus without complications; Z20.822 Contact with and (suspected) exposure to COVID-19; I10 Essential (primary) hypertension; M19.90 Unspecified osteoarthritis, unspecified site; F03.90 Unspecified dementia, unspecified severity, without behavioral disturbance, psychotic disturbance, mood disturbance, and anxiety; Z88.0 Allergy status to penicillin; Z86.73 Personal history of transient ischemic attack (TIA), and cerebral infarction without residual deficits
CPT/HCPCS: 36415; 71045; 80048; 80053; 81003; 82140; 82962; 83036; 83605; 84484; 85025; 87426; 93970; 97162; 97166; 97535; 99291; J0696; J1815; J2185; J7060